=== PATIENT | male | born 2000 | race Caucasian/White ===

== ENCOUNTER 2022-05-15 09:38 | Emergency (ER) | payer OTHER, SELFPAY ==
--- NOTE | ~2022-05-15 | XR_ITS ---
EXAMINATION: XR hand RT min 3V DATE: 05/15/2022 11:16 INDICATION: Right hand injury. TECHNIQUE: 4 views of right hand were obtained. COMPARISON: None. FINDINGS: Bone alignment is normal. The distal hamate is indistinct. A linear lucency in base of thir d metacarpal may be a fracture. Other joint spaces are normal. Splint material is noted. IMPRESSION: 1. Indistinct distal hamate suspicious for an intra-articular fracture at the fourth and fifth carpom etacarpal joints. Possible fracture of base of third metacarpal. Consider CT. Reviewed, dictated and finalized at location A. IMPRESSION: 1. Indistinct distal hamate suspicious for an intra-articular fracture at the f ourth and fifth carpometacarpal joints. Possible fracture of base of third meta carpal. Consider CT.
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
[2022-05-15 09:45] VITALS: BP 126/78; PULSE 88; RESP 16; TEMP 36.7; O2SAT 100
[2022-05-15] MEDS: ACETAMINOPHEN 500 MG TABLET 1000 MG PO (10:08)
== END 2022-05-15 11:53 | disposition home or self-care (01) ==
PROVIDERS: Emergency Provider Nurse Practitioner
DX: S62.91XA Unspecified fracture of right hand, initial encounter for closed fracture (principal); W22.09XA Striking against other stationary object, initial encounter; F17.200 Nicotine dependence, unspecified, uncomplicated
CPT/HCPCS: 29125; 73130; 99214; A4565; A9270; G0463

== ENCOUNTER 2022-06-02 14:09 | Outpatient (CLI) | payer OTHER, SELFPAY ==
--- NOTE | ~2022-06-02 | CT_ITS ---
EXAMINATION: CT UE RT wo con DATE: 06/02/2022 14:51 INDICATION: Left wrist fracture TECHNIQUE: High resolution computed tomography (CT) of the right hand and wrist was performed without intravenous contrast. Additional sagittal and coronal reconstructions were performed. Automated expo sure control and iterative reconstruction technique were employed. The dose-length product was 453.53 mGy-cm. COMPARISON: Right hand radiographs dated 05/15/2022 FINDINGS: Mildly comminuted intra-articular fracture involving the palmar base of the fourth metacarpal. The pa lmar sided fragments remain in relatively normal alignment relative to the hamate and the adjacent ba se of the third metacarpal. There is dorsal dislocation and slight proximal migration of the main thi rd metacarpal fragment at the third carpometacarpal joint. There is also a mildly comminuted fracture extending across the dorsal margin of the hamate involving the articular surfaces at both the fourth and fifth metacarpophalangeal joints. The dorsal fragments are dorsally displaced with similar degre e. There is associated dorsal subluxation and mild proximal migration of the fifth metacarpal, the pa lmar base of which is positioned abuts the hamate fracture donor site. No other fractures identified. 2 mm ulnar minus variance. Alignment and joint spaces of the right wrist and remainder the right akers d are normal. Soft tissues are unremarkable. IMPRESSION: 1. Intra-articular fractures involving the palmar base of the fourth metacarpal and dorsal margin of the hamate with dorsal dislocation/subluxation at both the fourth and fifth carpal metacarpal joints. Reviewed, dictated and finalized at location A. IMPRESSION: 1. Intra-articular fractures involving the palmar base of the fourth metacarpal and dorsal margin of the hamate with dorsal dislocation/subluxation at both th e fourth and fifth carpal metacarpal joints.
== END 2022-06-02 14:10 | disposition home or self-care (01) ==
PROVIDERS: Visit Provider Plastic Surgery
DX: S62.141A Displaced fracture of body of hamate [unciform] bone, right wrist, initial encounter for closed fracture (principal); S62.314A Displaced fracture of base of fourth metacarpal bone, right hand, initial encounter for closed fracture
CPT/HCPCS: 73200

== ENCOUNTER 2022-06-08 00:08 | Day surgery (SDC) | payer OTHER, SELFPAY ==
[2022-06-07 11:41] VITALS: BMI 16.9
--- NOTE | 2022-06-07 11:48 | PC.NURSE ---
Report to the Outpatient Waiting Room, entrance under the green pavilion located off [facility], at time 0700 on date 06/08/22. OR Time: 0900. - You and your visitor will be asked to self-screen and do not enter if you have any COVID symptoms. - Only one visitor and NO children visitors are allowed at this time. - The patient visitor is requested to leave or wait in car when not with patient due to restrictions. - A mask is required within the hospital. Patients may have clear liquids (water, carbonated beverages, clear teas, apple juice) until 3 hours prior to surgery with a maximum of 20 ounces. - No food from midnight until time of surgery Take the following medications with a SIP of water the morning of surgery: PAIN PILL (IF NEEDED) Medications to discontinue per physician: N/A Date to take last dose: N/A Please no make-up, nail azeri, hairspray, perfume, deodorant, or body powder the day of surgery. No jewelry (including any body piercings) or valuables the day of surgery, leave them at home. Please take a shower or bath the night before, or the morning of, surgery with an antibacterial soap. Wear comfortable, loose fitting clothing. - Jewelry must be removed prior to entering the operating room. Rings and piercings that are not removed may be cut off. - The hospital will not accept responsibility for valuables. - Please leave all valuables, including medications, at home the day of surgery. If you are going home after surgery, a licensed solo truck driver must drive you home. - NO public transportation without another adult. - We recommend that an adult stay with you for 24 hours following discharge. - We also recommend that you do not drive, make important decision, drink alcoholic beverages, or take any drugs that were not prescribed by your health care provider for at least 24 hours after your discharge time. Follow any additional instructions given to you from your surgeon. If you or anyone in your household have experienced Covid symptoms in the past week, please notify your surgeon or the nurse liaison at the phone number below for possible testing. Telephone instructions given to PT - ROYER MOYA and asked if any additional questions and then verbalized understanding. Patient advised to call surgeon office or pre surgery nurse liaison [phone] if any additional questions.
[2022-06-08] VITALS (8 sets, daily range): BP systolic 115–138; BP diastolic 52–96; PULSE 69–81; RESP 13–20; TEMP 36.6; O2SAT 98–100
--- NOTE | ~2022-06-08 | XR_ITS ---
EXAMINATION: XR surgery orthopedic DATE: 06/08/2022 12:13 INDICATION: Right hamate fracture. TECHNIQUE: 7 intraoperative fluoroscopic views of right wrist were obtained. I was not present. Fluor oscopy exposure time was 298 seconds. COMPARISON: CT 06/02/2022 FINDINGS: There is a pin in fifth metacarpal and hamate. There is a pin in the bases of the third-fif th metacarpals. There is a pin in the bases of the second-fifth metacarpals. IMPRESSION: 1. Pins involving the fifth carpometacarpal joint and bases of the metacarpals. Reviewed, dictated and finalized at location A.
--- NOTE | 2022-06-08 07:13 | WPDHPUPDATE1 ---
History and Physical Update Update Date/Time: 06/08/22 07:13 History and Physical has been reviewed, including an updated exam of the patient. There are NO changes in the patient's condition. Risks, benefits, and alternatives have been discussed and questions answered. Patient agrees to proceed with procedure.
--- NOTE | 2022-06-08 08:18 | WPDANESEPPF ---
Anes - Initial Pre Proc Eval Procedure: Operation Date: 06/08/22 09:00 Proposed Procedures p Open Reduction Internal Fixation Right Third, Fourth, and Fifth Metacarpal Base Fractures - Catrachito Parish MD Date/Time: 06/08/22 08:18 Surgeon: Catrachito Parish MD Pre Op Diagnosis: rt 3rd,4th, 5th metacarpal base fx Patient Data Age: 22 Gender: M Height: 1.79 m Weight: 54.43 kg Allergies Allergy/AdvReac Type Severity Reaction Status Date / Time No Known Allergies Allergy Verified 06/08/22 08:10 Home Medications Medication Instructions Recorded Confirmed Type hydrocodone 5 mg-acetaminophen 325 1 tablet PO Q6H PRN pain #14 tabs 05/15/22 06/08/22 Rx mg tablet Patient hx anesthesia problems: none Family hx anesthesia problems: none Results Review: All pre-operative results and documents have been reviewed as part of the pre-operative evaluation. [facility] Past Medical History Medical History Patient denies medical problems Surgical History Surgical History No history of previous surgery Social History Social History Smoking status: Never smoker Alcohol intake: current Drinks per week: 3 Substance use: current Substance use type: marijuana Living arrangements: with friend(s) Additional living arrangements comments: GIRLFRIEND Gender identity (if verbalized by the patient): Male Spiritual care concerns: No Anes - Eval Final PreProcedure Day of Procedure 06/08/22 08:18 Patient weight: normal Heart: regular rate and rhythm Lungs: clear to auscultation Airway: Mallampati scale class II Neurological: alert and oriented Last oral intake: >/= 8 hours ASA classification: II Emergent: no Anesthetic plan: proceed Anesthesia type and monitoring: general LMA and standard monitoring Results Review: All pre-operative results and documents have been reviewed as part of the pre-operative evaluation. Informed Consent: The patient's anesthetic plan and its attendant risks and benefits were discussed with the patient/family/POA. Questions were solicited and answers provided to the satisfaction of the patient/family/POA.
[2022-06-08] MEDS: LACTATED RINGERS 1,000 ML 30 ML IV CONT ×3 (08:20→12:57)
[2022-06-08] MEDS: LIDO 1%/EPINEPHRINE 1:100,000 50 ML VIAL 20 ML INFILTRATE (09:00)
[2022-06-08] MEDS: ceFAZolin 2 GM/D5W 50 ML 2 GM/50 ML BAG IVPB (09:00)
[2022-06-08] MEDS: BUPIVACAINE HCL 0.5% PF 30 ML VIAL INFILTRATE (11:32)
--- NOTE | 2022-06-08 12:18 | W.PM.PROC2 ---
Procedure Note - Detailed Date of Procedure 06/08/22 Pre-op Diagnosis rt 3rd,4th, 5th metacarpal base fx Post-op Diagnosis Same Procedure Performed Open reduction with internal fixation of fracture of the right hamate and fracture subluxation of the right 4th and 5th metacarpals. Surgeon Catrachito Parish MD Preventive Maintenance Coordinator Mar[facility] Anesthesia General Description of Procedure The dorsum of the right hand was marked the patient's consent the holding area. He was then taken to the operating room where he was placed supine on the operating table. He was given general endotracheal anesthesia and the right upper extremity was prepped and draped in usual fashion. The area was marked for incision to spare a large tattoo. This area was infiltrated with 1% lidocaine with epinephrine 10 milliliter. The marking was made to outline the course of the incision sparing a tattoo. An Esmarch tourniquet was used to exsanguinate the extremity. The tourniquet was inflated to 250 mmHg. A curving incision over the wrist and proximal metacarpals was made with a 15 blade. Blunt dissection through the subcutaneous tissue preserved larger veins and cutaneous nerves. A vessel loop was placed on the largest of these. A longitudinal incision was made across the carpal metacarpal joint extending distally between the 4th and 5th metacarpals. A sub periosteal dissection was carried out to visualize the fractures and the joints involved. The 3rd metacarpal was not fractured and not displaced and was not exposed. Comminuted fractures at the base of the 4th metacarpal and hamate and capitate were identified. The 5th metacarpal was somewhat subluxed into the carpometacarpal joint. Little damage seemed to have been done to the 5th metacarpal base or the hamate articulation. Significant comminution was noted at the ulnar base of the 4th metacarpal and the dorsum of the hamate at that articulation. There did not appear to be significant fragments amenable to screw fixation at those sites. Multiple images were made with the C-arm. A time-out was taken to review the CT scan again. The tourniquet had been up for 50 minutes and was released for 7 minutes at that point. After reinflation of the tourniquet I resorted to distraction of the 4th metacarpal and placement of a transverse 0.045 in C-wire through the proximal metaphysis of the 5th 4th and 3rd metacarpals. Additional stabilization was done by placing a diagonal 0.045 in C-wire through the proximal 5th metacarpal into the hamate securing also a very thin osteocartilaginous plate of the hamate joint surface. Fragments of the distal dorsal hamate were rotated into normal position. No fixation was possible on those other than over-sewing soft tissue with 3-0 Vicryl. To further secure the the stabilization of the subluxed metacarpals, a 2nd 0.045 inch C-wire was driven transversely across the 5th 4th 3rd and into the 2nd metacarpal at the level of the metaphyses paralleling the existing wire. With this fixation the wrist freely moved in flexion and extension and [id number]. There was no impingement on extensor tendons to the 4th or 5th digits. The pins were all cut pigtail and tucked under the skin sites that nerves or tendons were not impinged. Soft tissue was repaired over the carpometacarpal joint with 3-0 Vicryl. Intradermal 3-0 Vicryl was placed in the skin wound. 10 milliliter of 0.5% Marcaine plain were infiltrated in the wound area. Skin closure was completed with a running 5 0 nylon. The tourniquet was released. A soft bulky bandage was applied without splint. The patient was discharged from the operating room stable condition. He has a prescription for oxycodone 5/325 7 and ibuprofen 600 mg p.o. q.6 hours as needed 20. Estimated Blood Loss 3 Tourniquet Time 118 Drains No Packing No Pathology None sent Complications No immediate complications Condition Stable Disposition PACU
[2022-06-08] MEDS: fentaNYL CITRATE INJ (*CRX) 100 MCG/2 ML VIAL 25 MCG IV PUSH ×4 (12:22→12:41)
[2022-06-08] MEDS: oxyCODONE HCL (*CRX) 5 MG TAB IR PO (13:34)
== END 2022-06-08 13:50 | disposition home or self-care (01) ==
PROVIDERS: Visit Provider Plastic Surgery
PROC: (CPT 26615; principal; 2022-06-08 09:00)
DX: S62.314A Displaced fracture of base of fourth metacarpal bone, right hand, initial encounter for closed fracture (principal); S62.396A Other fracture of fifth metacarpal bone, right hand, initial encounter for closed fracture; W22.8XXA Striking against or struck by other objects, initial encounter; F12.90 Cannabis use, unspecified, uncomplicated
CPT/HCPCS: 26615 ×2; 99199; A9270; C1713; J0690; J1100; J1170; J1630; J2250; J2405; J2704; J3010; J7120

== ENCOUNTER 2022-10-06 17:20 | Outpatient (CLI) | payer OTHER, SELFPAY ==
--- NOTE | ~2022-10-06 | XR_ITS ---
EXAMINATION: XR wrist RT min 3V DATE: 10/06/2022 17:38 INDICATION: Right hamate fracture. TECHNIQUE: 4 views of right wrist were obtained. COMPARISON: Right hand radiographs 05/15/2022, CT 06/02/2022 FINDINGS: Bone alignment is normal. There is a fracture deformity of distal hamate. There is a fractu re deformity of base of fourth metacarpal. Other joint spaces are normal. There is a pin in hamate an d fifth metatarsal. There is a pin in the bases of the third-fifth metacarpals. There is a pin in the bases of the second-fifth metacarpals. IMPRESSION: 1. Fracture deformities of distal hamate and proximal fourth metacarpal with pin fixation of multiple bones. Reviewed, dictated and finalized at location A. RINTENDENT TRANSMISSION IMPRESSION: 1. Fracture deformities of distal hamate and proximal fourth metacarpal with pi n fixation of multiple bones.
== END 2022-10-06 17:21 | disposition home or self-care (01) ==
LOC: ANHIMG 17:21
PROVIDERS: Visit Provider Plastic Surgery
DX: S62.141D Displaced fracture of body of hamate [unciform] bone, right wrist, subsequent encounter for fracture with routine healing (principal); S62.314D Displaced fracture of base of fourth metacarpal bone, right hand, subsequent encounter for fracture with routine healing; S62.316D Displaced fracture of base of fifth metacarpal bone, right hand, subsequent encounter for fracture with routine healing
CPT/HCPCS: 73110

== ENCOUNTER 2022-10-18 01:18 | Day surgery (SDC) | payer OTHER, SELFPAY ==
--- NOTE | ~2022-10-18 | XR_ITS ---
EXAMINATION: XR surgery orthopedic DATE: 10/18/2022 11:04 INDICATION: Removal of fixation wires at the right wrist TECHNIQUE: 3 fluoroscopic images of the right hand and wrist were obtained during procedure performed by Dr. Parish. Radiologist was not present for the imaging or procedure. The amount of fluoroscopy ti me used during this procedure was 0.4 minutes. COMPARISON: 06/08/2022 FINDINGS: There are residual lucent tracks along the course of the previously placed fixation wires which exten d across the base of the second-fourth metacarpals and into the hamate. No retained metallic foreign bodies. Alignment appears near-anatomic. No fractures are evident on prior CT are not clearly visuali zed likely due to interval healing and fluoroscopic technique. No pneumothorax identified. IMPRESSION: 1. No retained foreign bodies post removal of fixation wires at the the hamate and bases of the secon d-fifth metacarpals. See procedure note for further detail. Reviewed, dictated and finalized at location A. MATE IMPRESSION: 1. No retained foreign bodies post removal of fixation wires at the the hamate and bases of the second-fifth metacarpals. See procedure note for further juanita nunez
--- NOTE | 2022-10-18 07:02 | WPDHPUPDATE1 ---
History and Physical Update Update Date/Time: 10/18/22 07:02 History and Physical has been reviewed, including an updated exam of the patient. There are NO changes in the patient's condition. Risks, benefits, and alternatives have been discussed and questions answered. Patient agrees to proceed with procedure.
[2022-10-18 08:52] VITALS: BP 126/73; PULSE 69; RESP 20; TEMP 36.6; O2SAT 100
[2022-10-18] MEDS: LACTATED RINGERS 1,000 ML 30 ML IV CONT (09:20)
--- NOTE | 2022-10-18 09:28 | WPDANESEPPF ---
Anes - Initial Pre Proc Eval Procedure: Operation Date: 10/18/22 07:30 Proposed Procedures p Removal Fixation C-Wires Right Wrist - Catrachito Parish MD Date/Time: 10/18/22 09:28 Surgeon: Catrachito Parish MD Pre Op Diagnosis: hx of ORIF right hammate Patient Data Age: 22 Gender: M Height: 1.78 m Weight: 56 kg Last Vital Signs Temp 36.6 C 10/18/22 08:52 Pulse 69 10/18/22 08:52 Resp 20 10/18/22 08:52 BP 126/73 10/18/22 08:52 Pulse Ox 100 10/18/22 08:52 O2 Del Method Room Air 10/18/22 08:52 Allergies Allergy/AdvReac Type Severity Reaction Status Date / Time No Known Allergies Allergy Verified 06/08/22 08:10 Home Medications Medication Instructions Recorded Confirmed Type hydrocodone 5 mg-acetaminophen 325 1 tablet PO Q6H PRN pain #14 tabs 05/15/22 10/18/22 Rx mg tablet ibuprofen 600 mg tablet 600 mg PO Q6H PRN pain #20 tabs 06/08/22 10/18/22 Rx oxycodone-acetaminophen 5 mg-325 1 tablet PO Q6H PRN pain #7 tabs 06/08/22 10/18/22 Rx mg tablet Patient hx anesthesia problems: none Family hx anesthesia problems: none Results Review: All pre-operative results and documents have been reviewed as part of the pre-operative evaluation. [facility] Past Medical History Medical History Patient denies medical problems Surgical History Surgical History (Updated 10/18/22 @ 09:28 by Real Santiago MD) H/O wrist surgery Social History Social History Smoking status: Never smoker Alcohol intake: current Drinks per week: 3 Substance use: current Substance use type: marijuana Additional living arrangements comments: GIRLFRIEND Gender identity (if verbalized by the patient): Male Spiritual care concerns: No Anes - Eval Final PreProcedure Day of Procedure 10/18/22 09:28 Patient weight: thin Heart: regular rate and rhythm Lungs: clear to auscultation Airway: Mallampati scale class II Neurological: alert and oriented Last oral intake: >/= 8 hours ASA classification: II Emergent: no Anesthetic plan: proceed Anesthesia type and monitoring: general GIVS and standard monitoring Results Review: All pre-operative results and documents have been reviewed as part of the pre-operative evaluation. Informed Consent: The patient's anesthetic plan and its attendant risks and benefits were discussed with the patient/family/POA. Questions were solicited and answers provided to the satisfaction of the patient/family/POA.
[2022-10-18 10:56] VITALS: BP 106/68; PULSE 72; RESP 18; O2SAT 100
--- NOTE | 2022-10-18 11:12 | W.PM.PROC2 ---
Procedure Note - Detailed Date of Procedure 10/18/22 Pre-op Diagnosis hx of ORIF right hammate Post-op Diagnosis Same Procedure Performed Planed removal of fixation hardware. Surgeon Catrachito Parish MD Anesthesia MAC Findings 3 appropriately positioned C wires Description of Procedure The patient's hand was marked in preop over the palpable pin ends. There was no infection or drainage at this time patient has good range of motion. He had been lost to follow-up for while. He was taken to the operating room where he was placed supine operating table. He was given some IV sedation. The extremity was prepped and draped in usual fashion. The locations of the pins were infiltrated with 2% lidocaine with epinephrine. No tourniquet was utilized. The C-arm confirmed the site of pin ends. Two small incisions were made allowing visualization the pins. Two pins were removed from the more volar proximal incision without difficulty. The single pin was removed from dorsal distal incision. There was a little bleeding that site. Pressure was held on this. Each site was closed with interrupted 5 0 nylon sutures 3 stitches each. A small compressive bandage was applied. He is discharge instructions wound care and follow-up. He has a prescription sent to his pharmacy for hydrocodone 5/325 4. Estimated Blood Loss 2 Tourniquet Time 0 Drains No Packing No Pathology None sent Complications No immediate complications Condition Stable Disposition Same day
[2022-10-18] MEDS: oxyCODONE HCL (*CRX) 5 MG TAB IR PO (11:25)
[2022-10-18 11:26] VITALS: BP 117/93; PULSE 87; RESP 18; O2SAT 100
== END 2022-10-18 12:19 | disposition home or self-care (01) ==
PROVIDERS: Visit Provider Plastic Surgery
PROC: (CPT 20694; principal; 2022-10-18 07:30)
DX: Z47.2 Encounter for removal of internal fixation device (principal); S62.141D Displaced fracture of body of hamate [unciform] bone, right wrist, subsequent encounter for fracture with routine healing; W22.09XD Striking against other stationary object, subsequent encounter; F12.90 Cannabis use, unspecified, uncomplicated
CPT/HCPCS: 20680 ×2; 99199; A9270; J2250; J2704; J3010; J7120

== ENCOUNTER 2023-04-21 10:33 | Emergency (ER) | payer OTHER, SELFPAY ==
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
[2023-04-21 10:34] VITALS: BP 117/75; PULSE 72; RESP 20; TEMP 36.9; O2SAT 98
[2023-04-21] MEDS: HYDROcodone/acetaminophen (*CRX) 5-325 MG TABLET 1 TAB PO ×2 (11:08→12:50)
--- NOTE | 2023-04-21 11:31 | ECG_ITS ---
Measurements Intervals [place] Rate: 58 P: 52 CA: 168 QRS: 52 QRSD: 90 T: 41 QT: 361 QTc: 357 Interpretive Statements SINUS BRADYCARDIA WITH SINUS ARRHYTHMIA BORDERLINE ECG NO PREVIOUS ECG AVAILABLE FOR COMPARISON Electronically Signed On 04-21-2023 18:22:34 CDT by Landry Chase D.O.
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
[2023-04-21] MEDS: KETOROLAC 30 MG/ML VIAL (*BKC) IM (12:50)
[2023-04-21 13:43] VITALS: BP 130/84; PULSE 78; RESP 16; O2SAT 99
== END 2023-04-21 13:43 | disposition home or self-care (01) ==
PROVIDERS: Emergency Provider Physician Assistant; PCP Family Medicine
DX: R07.89 Other chest pain (principal); W50.0XXA Accidental hit or strike by another person, initial encounter; Y93.75 Activity, martial arts
CPT/HCPCS: 71250; 93005; 96372; 99284; A9270; J1885

== ENCOUNTER 2023-10-23 08:54 | Emergency (ER) | payer OTHER, SELFPAY ==
[2023-10-23 08:57] VITALS: BP 142/75; PULSE 90; RESP 16; TEMP 36.3; O2SAT 100
[2023-10-23 09:58] LABS: Appearance Urine Clear (Clear); Bacteria Urine None Seen /hpf; Bilirubin Urine Negative (Negative); Blood Urine Negative (Negative); Color Urine Yellow (Yellow); Glucose Urine UA Negative (Negative); Ketones Urine Trace mg/dL (Negative); Leukocyte Esterase Ur Negative LEU/UL (Negative); Nitrate Urine Negative (Negative); Non Pathogenic Casts 0-2; Protein Urine 1+ mg/dL (Negative); RBC Urine 0-2 /hpf (0-2); Squamous Epithelial Cell Urine None seen /hpf (Few); WBC Urine 0-5 /hpf; pH Urine 5.5 (5.0-9.0)
[2023-10-23 09:59] LABS: Add Urine Microscopic? YES
--- NOTE | 2023-10-23 10:07 | ED.GENADULT ---
HPI - General Adult General Chief complaint: Urogenital-Male Stated complaint: testicular lump, can't pee, pain Time Seen by Provider: 10/23/23 09:46 Source: patient Mode of arrival: ambulatory Limitations: no limitations History of Present Illness HPI narrative: This is a 23-year-old male who presents to the ED with chief complaint of difficulty with urination. Reports that sometimes it will take 2-3 minutes before he can start urine stream. Patient also reports a lump to the left groin area has been present for 2-3 years and seems to be slowly enlarging. Denies any pain. Does report some dysuria but denies hematuria, penile discharge penile pain lesions or testicular pain or lesions. Denies any specific concern for STD Related Data Allergies Allergy/AdvReac Type Severity Reaction Status Date / Time No Known Allergies Allergy Verified 10/23/23 08:55 Review of Systems Review of Systems: All systems as dictated in HPI REPLACED BY [facility] Past Medical History Medical History (Updated 10/23/23 @ 11:28 by Jorge Luis Ospina PA-C) Patient denies medical problems Surgical History Surgical History (Updated 10/18/22 @ 09:28 by Real Santiago MD) H/O wrist surgery Social History Social History Smoking status: Never smoker Alcohol intake: current Drinks per week: 3 Substance use: current Substance use type: marijuana Living arrangements: with friend(s) Additional living arrangements comments: GIRLFRIEND Gender identity (if verbalized by the patient): Male Spiritual care concerns: No Exam Narrative: GENERAL: Well-appearing, well-nourished, and in no acute distress. HEAD: Normocephalic, atraumatic. EYES: PERRLA and EOMI. ENT: Nares clear, no rhinorrhea or epistaxis. Mucous membranes moist. Oropharynx without tonsillar hypertrophy exudate or other lesions. NECK: Supple. No adenopathy or masses. CHEST: No respiratory distress. Clear to auscultation. No wheezes rales or rhonchi HEART: Regular rate and rhythm. No murmur heard. Normal peripheral pulses. ABDOMEN: Soft, nontender, nondistended, normal active bowel sounds. MSK: Normal range of motion. No edema. SKIN: There is a small 2 cm area of firm swelling to the left groin/medial thigh. No overlying skin changes. No tenderness or warmth. Warm, dry, no rash. NEURO: Alert and oriented x3. No focal deficits. PSYCH: Normal mood and affect. : Normal penile shaft and testicular exam. Course Vital Signs Vital signs: Vital Signs Temperature 97.4 F L 10/23/23 08:57 Pulse Rate 90 10/23/23 08:57 Respiratory Rate 16 10/23/23 08:57 Blood Pressure 142/75 H 10/23/23 08:57 Pulse Oximetry 100 10/23/23 08:57 Oxygen Delivery Room Air 10/23/23 08:57 Temperature 97.8 F 10/23/23 10:57 Pulse Rate 86 10/23/23 12:12 Respiratory Rate 10/23/23 12:12 Blood Pressure 140/86 10/23/23 12:12 Pulse Oximetry 98 10/23/23 12:12 Oxygen Delivery Room Air 10/23/23 08:57 Medical Decision Making MDM Narrative Medical decision making narrative: This is a 23 year male who presents to the ED with chief complaint of a left groin lump and some difficulty with urination. Vitals are normal. exam relatively unremarkable. I do palpate a likely lipoma of the left thigh. No overlying skin changes. No tenderness to suggest infectious process. Urinalysis does not show any evidence of infection. STD test are negative. He was given urology referral for this difficulty with urination. Pt will be discharged in stable condition. Return precautions given and supportive measures discussed. Pt is understanding and agreeable with plan for discharge and follow-up with PCP/urology Vital Signs Vital Signs: Vital Signs Temperature 97.4 F L 10/23/23 08:57 Pulse Rate 90 10/23/23 08:57 Respiratory Rate 10/23/23 08:57 Blood Pressure 142/75 H 10/23/23 08:57 Pulse Oximetry
[2023-10-23 10:57] VITALS: BP 118/75; PULSE 77; RESP 18; TEMP 36.6; O2SAT 99
[2023-10-23 11:38] LABS: Trichomonas Vag PCR NOT DETECTED (NOT DETECTE)
[2023-10-23 12:03] LABS: Chlamydia trachomatis NOT DETECTED (NOT DETECTE); Neisseria gonorrhoeae PCR NOT DETECTED (NOT DETECTE)
[2023-10-23 12:12] VITALS: BP 140/86; PULSE 86; RESP 16; O2SAT 98
== END 2023-10-23 12:12 | disposition home or self-care (01) ==
PROVIDERS: Emergency Medicine; Emergency Provider Physician Assistant
DX: R39.198 Other difficulties with micturition (principal)
CPT/HCPCS: 81001; 87491; 87591; 87661; 99283

== ENCOUNTER 2024-06-03 22:54 | Inpatient (IN) | payer OTHER, SELFPAY ==
--- NOTE | ~2024-06-03 | XR_ITS ---
Portable chest x-ray Comparison: 06/04/2024 Clinical History: Respiratory failure Findings: Endotracheal tube, NG tube, and right-sided PICC line are in satisfactory positions. Proba ble focal retrocardiac consolidation present. Suspected small left apical pneumothorax. Right lung cl ear. Suspected pneumomediastinum. Cardiomediastinal silhouette is otherwise stable. Osseous structure s intact. There is extensive subcutaneous soft tissue emphysema. Impression: Suspected small left apical pneumothorax. Retrocardiac consolidation could reflect atelectasis or pneumonia. Extensive subcutaneous emphysema, and suspected pneumomediastinum. Support tubes, as above. Reviewed, dictated and finalized at location . Impression: Suspected small left apical pneumothorax. Retrocardiac consolidation could reflect atelectasis or pneumonia. Extensive subcutaneous emphysema, and suspected pneumomediastinum. Support tubes, as above.
--- NOTE | ~2024-06-03 | XR_ITS ---
EXAMINATION: XR abdomen gastric tube insert DATE: 06/03/2024 23:26 INDICATION: Orogastric tube placement. TECHNIQUE: A supine view of the abdomen was obtained. COMPARISON: None. FINDINGS: There are no dilated loops of bowel. The lower abdomen is excluded. The nasogastric tube ti p is in the stomach. IMPRESSION: 1. Nasogastric tube tip in the stomach. Reviewed, dictated and finalized at location [facility].
--- NOTE | ~2024-06-03 | CT_ITS ---
EXAMINATION: CT brain wo con DATE: 06/05/2024 11:14 INDICATION: Nonreactive pupils TECHNIQUE: Computed tomography (CT) of the head was performed without intravenous contrast. Sagittal and coronal reconstructions were performed. The mA was adjusted according to patient size. Iterative reconstruction technique was employed. The dose-length product was 681.00 mGy-cm. COMPARISON: head CT dated 06/04/2024 FINDINGS: No acute intracranial hemorrhage, acute infarction or abnormal extra axial fluid collection. Ventricl es are normal and symmetric. No mass/mass effect. The orbits, paranasal sinuses and mastoid air cells are normal. There is soft tissue gas in the deep spaces of the neck and in the subcutaneous tissues at the posterior upper neck.. IMPRESSION: 1. Normal brain. No acute intracranial process. 2. Nonspecific gas in the deep spaces of the neck and in the posterior cervical subcutaneous tissues Reviewed, dictated and finalized at location [facility].
--- NOTE | ~2024-06-03 | XR_ITS ---
EXAMINATION: XR chest PICC line DATE: 06/04/2024 09:39 INDICATION: PICC line placement TECHNIQUE: frontal view of the chest was obtained. COMPARISON: Chest radiograph dated 06/04/2024 at 5:14 AM FINDINGS: Endotracheal tube tip 4.4 cm above the brayden. Nasogastric tube extends into the stomach with proxim al side-port in the proximal body of the stomach and the distal tip collimated off the study. Right u pper extremity peripherally inserted central venous catheter (PICC) tip at the caudal superior vena cava. There are patchy airspace opacities throughout the left lung. Additional mild opacities in the right perihilar and infrahilar regions. No pleural effusion or pneumothorax. The cardiomediastinal silhouet te is normal. There is soft tissue gas at the visualized right neck and supraclavicular region. IMPRESSION: 1. Lines and tubes in expected position. 2. Extensive airspace opacities throughout the left hemithorax and in the right perihilar in the infr ahilar regions suspicious for pneumonia an/or pneumonia. 3. Soft tissue gas at the right neck and supraclavicular region which is of indeterminate etiology. C orrelate with clinical history and for any surgery or trauma in this region. Reviewed, dictated and finalized at location [facility]. IMPRESSION: 1. Lines and tubes in expected position. 2. Extensive airspace opacities throughout the left hemithorax and in the right perihilar in the infrahilar regions suspicious for pneumonia an/or pneumonia. 3. Soft tissue gas at the right neck and supraclavicular region which is of ind eterminate etiology. Correlate with clinical history and for any surgery or tra narendra in this region.
--- NOTE | ~2024-06-03 | CT_ITS ---
EXAMINATION: CT abdomen pelvis w con DATE: 06/05/2024 11:13 INDICATION: Pneumoperitoneum post CPR TECHNIQUE: Computed tomography (CT) of the abdomen and pelvis was performed with 100 mL Omnipaque-350 intravenous contrast. Automated exposure control and iterative reconstruction technique were employe d. The dose-length product was 313.89 mGy-cm. COMPARISON: None FINDINGS: There is pneumomediastinum in the visualized lower thorax. There is minimal amount of extrapleural ga s peripheral to the left lung but also peripheral to a very small left pleural effusion. Branching pa ttern of increased lucency in the right lung suggesting interstitial gas. There is consolidation in t he dependent lower lobes, left greater than right with small amount of additional patchy airspace dis ease at the dependent lingula consistent with pneumonia. Nasogastric tube tip in the body the stomach . There is anterior chest wall gas. There is gas along the deep margin of the abdominal wall. There are subtle internal septations extending throughout the gas which would be consistent with extraperitone al emphysema. No other evident free intraperitoneal gas. Minimal perihepatic ascites at the gallbladd er fossa and along the caudal tip of the right hepatic lobe. Gallbladder appears otherwise normal wit h no dilation or pericholecystic inflammatory stranding to suggest acute cholecystitis. Liver, spleen , pancreas, bilateral adrenal glands and kidneys are normal. Molina catheter within the decompressed b ladder. There is a likely temperature probe in the rectum. Bowels are unremarkable with no obstructio n. No pathologically enlarged abdominal or pelvic lymphadenopathy. Bones are unremarkable. IMPRESSION: 1. Extraperitoneal gas along the anterior abdominal wall along with subcutaneous emphysema the anteri or chest wall, pneumomediastinum, minimal extrapleural gas at the periphery of the left lung base and small amount of gas tracking along the pulmonary interstitium of the right lung. 2. Consolidation in the dependent left and right lower lobes and to lesser degree in the lingula cons istent with aspiration and/or pneumonia. 3. Minimal perihepatic ascites. No intraperitoneal abscess or free intraperitoneal gas. Reviewed, dictated and finalized at location [facility]. IMPRESSION: 1. Extraperitoneal gas along the anterior abdominal wall along with subcutaneou s emphysema the anterior chest wall, pneumomediastinum, minimal extrapleural ga s at the periphery of the left lung base and small amount of gas tracking along the pulmonary interstitium of the right lung. 2. Consolidation in the dependent left and right lower lobes and to lesser degr ee in the lingula consistent with aspiration and/or pneumonia. 3. Minimal perihepatic ascites. No intraperitoneal abscess or free intraperiton eal gas.
--- NOTE | ~2024-06-03 | XR_ITS ---
Portable chest x-ray Comparison: 06/03/2024 Clinical History: Intubation Findings: Endotracheal tube and NG tube are in satisfactory positions. Extensive patchy left upper l obe pneumonia is again present. Small left pleural effusion noted. Right lung clear. Cardiomediastin al silhouette is stable. Bones and soft tissues are unremarkable. Impression: Extensive left upper lobe pneumonia, similar to prior exam. Small left pleural effusion. Support tubes, as above. Reviewed, dictated and finalized at location . Impression: Extensive left upper lobe pneumonia, similar to prior exam. Small left pleural effusion. Support tubes, as above.
--- NOTE | ~2024-06-03 | CT_ITS ---
CT Scan of the Neck and Chest without Contrast: Clinical Indication: Subcutaneous emphysema Technique: Contiguous sections were acquired throughout the neck and chest without intravenous contra st. Dose reduction technique was used on this scan by utilizing automated exposure control and iterat harley reconstruction technique. The dose-length product (DLP) was 482.44 mGy-cm. COMPARISON: 06/04/2024 Findings: Endotracheal tube and NG tube remain in place. There is extensive soft tissue emphysema in the neck bilaterally. No cervical lymphadenopathy or neck mass identified. Parotid and submandibular glands are unremarkable. There is no evidence of any significant mediastinal, hilar or axillary lymphadenopathy. There is exte nsive pneumomediastinum, new from prior exam. There is no evidence of pleural or pericardial effusion. Small left apical pneumothorax present. Patchy left upper lobe consolidation and present, compatible with pneumonia. There is additional consolidation involving the bilateral lower lobes, left worse sonya n right, suggestive of additional pneumonia bilaterally. Element of bibasilar atelectasis may also be present. There is extensive subcutaneous emphysema throughout the anterior chest wall region and in the suprac lavicular regions. There is pneumoperitoneum, likely related to dissection of air from the mediastinu m. Impression: Markedly extensive soft tissue/subcutaneous emphysema and the neck and chest wall/upper back. Extensive pneumomediastinum, as well as pneumoperitoneum, new from prior exam. Small left pneumothorax, new from prior exam. Multifocal consolidation in the left upper lobe, left lower lobe, right lower lobe, most compatible w ith multilobar pneumonia. Possible element of bibasilar atelectasis also present. Reviewed, dictated and finalized at location M. Impression: Markedly extensive soft tissue/subcutaneous emphysema and the neck and chest wa ll/upper back. Extensive pneumomediastinum, as well as pneumoperitoneum, new from prior exam. Small left pneumothorax, new from prior exam. Multifocal consolidation in the left upper lobe, left lower lobe, right lower l obe, most compatible with multilobar pneumonia. Possible element of bibasilar a telectasis also present.
--- NOTE | ~2024-06-03 | CT_ITS ---
Non-contrast Head CT History: Overdose Technique: Axial non-contrast imaging of the brain was performed. Dose reduction technique was used on this scan by utilizing automated exposure control and iterative reconstruction technique. The dose -length product (DLP) was 605.33 mGy-cm. Findings: There is no evidence of intracranial hemorrhage, mass lesion, or acute infarct. Brain par enchyma appears normal. The ventricles and subarachnoid spaces are normal in size. The calvarium ap pears normal. The visualized paranasal sinuses and mastoid air cells are clear. Impression: No significant abnormality seen. Reviewed, dictated and finalized at location . Impression: No significant abnormality seen.
--- NOTE | ~2024-06-03 | CT_ITS ---
CT Scan of the Chest without Contrast: Clinical Indication: Pneumonia Technique: Contiguous sections were acquired throughout the chest without intravenous contrast. Dose reduction technique was used on this scan by utilizing automated exposure control and iterative recon struction technique. The dose-length product (DLP) was 152.96 mGy-cm. COMPARISON: 04/21/2023 Findings: Endotracheal tube and NG tube are in place. There is no evidence of any significant mediastinal, hilar or axillary lymphadenopathy. The mediastin al soft tissues appear normal. There is no evidence of pleural or pericardial effusion. There is extensive, dense bilateral lower lobe consolidation, which could reflect atelectasis or pneu monia. There is additional extensive patchy consolidation throughout the left upper lobe, consistent with extensive left upper lobe pneumonia. There is minimal patchy airspace disease in the right upper lobe, which could indicate additional minimal pneumonia involvement. Images through the upper abdomen reveal no abnormalities. Impression: Extensive left upper lobe pneumonia. Follow-up to radiographic resolution is advised. Extensive dense bilateral lower lobe consolidation is more suggestive of bilateral lower lobe atelect asis, versus additional pneumonia. Probable minimal pneumonic involvement in the right upper lobe. Reviewed, dictated and finalized at [facility]. Impression: Extensive left upper lobe pneumonia. Follow-up to radiographic resolution is ad vised. Extensive dense bilateral lower lobe consolidation is more suggestive of bilate ral lower lobe atelectasis, versus additional pneumonia. Probable minimal pneumonic involvement in the right upper lobe.
--- NOTE | ~2024-06-03 | XR_ITS ---
EXAMINATION: XR chest 1V portable DATE: 06/03/2024 23:14 INDICATION: Overdose. Intubation. TECHNIQUE: A single frontal view of the chest was obtained. COMPARISON: Chest CT 04/21/2023 FINDINGS: There are airspace opacities in left mid and upper lung zones. No pleural effusion or pneum othorax. The heart size is normal. The endotracheal tube tip is 2.5 cm above the brayden. IMPRESSION: 1. Airspace opacities in left mid and upper lung zones, consistent with pneumonia. Reviewed, dictated and finalized at location A. IMPRESSION: 1. Airspace opacities in left mid and upper lung zones, consistent with pneumon ia.
--- NOTE | ~2024-06-03 | XR_ITS ---
EXAMINATION: XR chest-chest tube insert/pos DATE: 06/05/2024 09:33 INDICATION: Chest tube placement TECHNIQUE: frontal view of the chest was obtained. COMPARISON: Chest radiograph and CT dated 06/05/2024 FINDINGS: Interval placement of a left chest tube which extends from inferolateral to superomedial across the l eft hemithorax with distal tip along the superior mediastinum. Endotracheal tube tip 4.0 cm from the brayden. Nasogastric tube extends below the left hemidiaphragm with proximal side-port in the proxima l body of the stomach and the distal tip collimated off the study. Right upper extremity peripherally inserted central venous catheter (PICC) tip at the caudal superior vena cava. There are patchy airspace opacities throughout the left hemithorax and in the right infrahilar region consistent with pneumonia. There is extensive subcutaneous emphysema over the neck and chest along w ith pneumomediastinum. There is small amount of increased lucency overlying the left apex which could represent a small pneumothorax or subpleural chest wall gas. No pleural effusion or right-sided pneu mothorax. The cardiomediastinal silhouette is normal. There is a small amount of gas underlying the d iaphragm but which appears to remain within the infradiaphragmatic fat on the prior CT. IMPRESSION: 1. Left chest tube in expected position. Small amount of lucency overlying the left apex which could represent a small pneumothorax or more likely residual gas in the subpleural chest wall fat. 2. Patchy airspace opacities throughout the left lung and in the right infrahilar region consistent w ith pneumonia. 3. Small amount of gas underlying the diaphragm but would favor gas in the infradiaphragmatic fat as opposed to pneumoperitoneum based upon prior CT imaging. Reviewed, dictated and finalized at location [facility]. IMPRESSION: 1. Left chest tube in expected position. Small amount of lucency overlying the left apex which could represent a small pneumothorax or more likely residual ga s in the subpleural chest wall fat. 2. Patchy airspace opacities throughout the left lung and in the right infrahil ar region consistent with pneumonia. 3. Small amount of gas underlying the diaphragm but would favor gas in the infr adiaphragmatic fat as opposed to pneumoperitoneum based upon prior CT imaging.
[2024-06-03 23:00] VITALS: PULSE 91; O2SAT 100
[2024-06-03 23:04] VITALS: BP 158/92; PULSE 98; RESP 18; O2SAT 96
[2024-06-03 23:05] VITALS: PULSE 136; RESP 15
[2024-06-03] MEDS: PROPOFOL IV EMULSION 100 ML 1.84 MG IV CONT (23:05)
--- NOTE | 2024-06-03 23:07 | ECG_ITS ---
Test Date: 2024-06-03 23:17:18 Measurements Intervals [place] Rate: 60 P: 73 OK: 141 QRS: 69 QRSD: 86 T: 61 QT: 358 QTc: 360 Interpretive Statements SINUS RHYTHM WITH PACS ABNORMAL RHYTHM ECG WARNING: DATA QUALITY MAY AFFECT INTERPRETATION No previous ECG available for comparison Electronically Signed On 06-05-2024 12:59:27 CDT by Hiram Em M.D.
--- NOTE | 2024-06-03 23:12 | ED.CPR ---
HPI - CPR General Chief Complaint: Cardiac Arrest/CPR Stated Complaint: code blue History of Present Illness HPI narrative: Patient is a 24-year-old male who presents to the emergency department this evening in cardiac arrest. EMS states that they got called for an unresponsive patient by family, unknown down time. Upon arrival, patient was unresponsive, not breathing and did not have a pulse. He was administered 3 rounds of Narcan and CPR was initiated. [place] was inserted for ventilatory support. By the time patient arrived to the emergency department, CPR has been in progress for 20 minutes. No epinephrine was administered as EMS did not have an IV. EMS informed us that family members told them that the patient has an extensive history of drug use and believes that he overdosed on fentanyl today. Related Data Allergies Allergy/AdvReac Type Severity Reaction Status Date / Time No Known Allergies Allergy Verified 10/23/23 08:55 Review of Systems Review of Systems: Unable to obtain a full ROS secondary to patient's current status. [facility] Past Medical History Medical History Patient denies medical problems Surgical History Surgical History H/O wrist surgery Social History Social History Smoking status: Never smoker Alcohol intake: current Drinks per week: 3 Substance use: current Substance use type: marijuana Living arrangements: with friend(s) Additional living arrangements comments: GIRLFRIEND Gender identity (if verbalized by the patient): Male Spiritual care concerns: No Exam Narrative: General: Unresponsive, CPR in progress. HEENT: Pupils dilated, equal and round reactive to light, oropharynx filled with bloody secretions and vomit. Neck: Trachea midline, no JVD, no lymphadenopathy. Cardiovascular: CPR in progress. Respiratory: Coarse breath sounds bilaterally. Abdomen: Soft, nontender, nondistended, no rebound, no guarding, no peritoneal signs. Musculoskeletal: No joint swelling or deformity, normal muscle tone. Skin: No rashes or petechia, no signs of infection. Neurological: And was positive, CPR in progress. Course Vital Signs Vital signs: Vital Signs Pulse Rate 91 06/03/24 23:00 Pulse Oximetry 100 06/03/24 23:00 Oxygen Delivery Mechanical Ventilation 06/03/24 23:00 Fraction of Inspired Oxygen 100 06/03/24 23:00 Temperature 97.0 F L 06/03/24 23:38 Pulse Rate 112 H 06/04/24 03:03 Respiratory Rate 34 H 06/04/24 03:03 Blood Pressure 122/76 06/04/24 03:00 Pulse Oximetry 95 06/04/24 03:01 Oxygen Delivery Mechanical Ventilation 06/04/24 02:25 Fraction of Inspired Oxygen 80 06/04/24 02:25 Procedures Intubation Intubation #1: Intubation Date: 06/04/24 Intubation Time: 03:23 Time out performed: Yes sedative: Etomidate Mg Given: 20 paralytic: Rocuronium Mg Given: 100 Laryngoscope: fiber optic video scope Tube Size (cm): 7.5 Method of Intubation: orotracheal Number of Attempts: 1 Tube Secured Depth (cm): 25 Tube Secured Location: lips Tube Placement Confirmation: visualized tube passing through cords, equal breath sounds bilaterally, no breath sounds over epigastrium and confirmation by capnometry Patient Tolerated Procedure: well Intubation Complications: none MDM - Cardiac Arrest/CPR MDM Narrative Medical decision making narrative: The patient was evaluated by myself in the emergency department. History is obtained from EMS. External medical records were reviewed at this time. IV was established and pertinent tests were ordered. CPR was resumed and patient was administered 1 round of epinephrine with return of spontaneous circulation. Bedside cardiac ultrasound revea
[2024-06-03 23:25] LABS: Glucose Point of Care 278 mg/dl (65-105)
[2024-06-03 23:30] LABS: Basophils Absolute Auto 0.1 K/mm3 (0.0-0.1); Basophils Percent Auto 0.4 % (0.2-1.2); Eosinophils Absolute Auto 0.5 K/mm3 (0-0.3); Eosinophils Percent Auto 2.4 % (0-4.4); Hematocrit 42.8 % (42.0-52.0); Hemoglobin 14.9 g/dL (14.0-18.0); Immature Granulocyte Absolute 1.05 K/mm3 (0.00-0.031); Lymphocytes Absolute Auto 3.11 K/mm3 (0.9-3.2); Lymphocytes Percent Auto 14.7 % (18.3-44.2); Mean Corpuscular HGB Conc 34.8 g/dl (32-36); Mean Corpuscular Hemoglobin 33.3 pg (26-34); Mean Corpuscular Volume 95.5 fl (80-100); Mean Platelet Volume 9.4 fl (7.4-10.4); Monocytes Absolute Auto 0.9 K/mm3 (0.1-0.6); Monocytes Percent Auto 4.2 % (2.6-8.5); Neutrophils Absolute Auto 15.6 K/mm3 (1.3-6.7); Neutrophils Percent Auto 73.3 % (45.5-73.1); Platelet Count Result 251 k/mm3 (150-375); Red Blood Count 4.48 M/mm3 (4.6-6.20); Red Cell Distribution Width 12.2 % (11.5-14.5); White Blood Count 21.2 K/mm3 (4.5-10.0)
[2024-06-03 23:38] VITALS: BP 132/93; PULSE 92; RESP 20; TEMP 36.1; O2SAT 97
[2024-06-03 23:41] LABS: Acetaminophen < 10 ug/mL (10-30); Ethanol < 10 mg/dL (<10); Lactic Acid Reflex 3.7 mmol/L (0.7-2.0)
[2024-06-03 23:45] VITALS: BP 137/99; PULSE 105; RESP 15; O2SAT 100
[2024-06-03 23:46] VITALS: PULSE 108; RESP 15; O2SAT 100
[2024-06-03 23:46] LABS: Amphetamine Screen Urine Negative (Negative); Barbiturate Screen Urine Negative (Negative); Benzodiazepines Screen Urine Positive (Negative); Cannabinoid Screen Urine Positive (Negative); Cocaine Screen Urine Positive (Negative); Methadone Screen Urine Negative (Negative); Opiate Screen Urine Positive (Negative); Phencyclidine Screen Urine Negative (Negative)
[2024-06-03 23:46] LABS: Alveolar/Arterial O2 Gradient 545.1 mmHg; Base Excess ABG -5.4 mEq/l (+/-2.0); Fractional Inspired Oxygen 100 %; HCO3 ABG 23.5 mEq/l (22.0-26.0); Oxygen Content ABG 19.2 %vol (16.0-22.0); Oxygen Saturation ABG 96.7 % (95.0-100.0); Oxyhemoglobin 96.1 % THb (90.0-100.0); PO2 ABG 107.2 mmHg (80.0-100.0); PO2 FiO2 Ratio Arterial Blood 1.07 %; Total Hemoglobin 14.1 g/dL (12.0-18.0)
[2024-06-03 23:49] LABS: pH ABG 7.206 (7.350-7.450)
[2024-06-03] MEDS: PIPERACILLIN/TAZ 4.5G/NS 100ML 4.5 GM/100 ML BAG IVPB (23:49)
[2024-06-03 23:50] LABS: Device VENTILATOR; Modified Allen's Test Pass; PCO2 ABG 60.7 mmHg (35.0-45.0); Site Drawn RIGHT RADIAL
[2024-06-03 23:51] LABS: Arterial Blood Gas PEEP 8 cmH2O; Arterial Blood Gas Tidal Volume 400 ml; Arterial Blood Gas Vent Mode CMV; Arterial Blood Gas Ventilator rate 15 /MIN
[2024-06-03] MEDS: SODIUM CHLORIDE 0.9% IV 1,000 ML 999 ML IV CONT (23:57)
[2024-06-04] VITALS (107 sets, daily range): BP systolic 82–251; BP diastolic 47–180; PULSE 63–130; RESP 18–60; TEMP 33–40.2; O2SAT 77–100; BMI 19.3
[2024-06-04 00:04] LABS: Add Urine Microscopic? YES; Alanine Aminotransferase 183 U/L (6-50); Alkaline Phosphatase 71 U/L (38-126); Anion Gap 14 mmol/L (4-12); Appearance Urine Cloudy (Clear); Aspartate Amino Transferase 233 U/L (17-59); Bacteria Urine 1+ /hpf; Bilirubin Urine Negative (Negative); Bilirubin,Total 0.4 mg/dL (0.2-1.3); Blood Urea Nitrogen 11 mg/dL (9-20); Blood Urine 2+ (Negative); Calcium 8.1 mg/dL (8.4-10.2); Carbon Dioxide 26 mmol/L (22-30); Chloride 100 mmol/L (98-107); Color Urine Yellow (Yellow); Estimated Glomerular Filt Rate > 60; Glucose 254 mg/dL (65-110); Glucose Urine UA 3+ mg/dL (Negative); Hyaline Casts Urine Present /lpf; Ketones Urine Negative (Negative); Leukocyte Esterase Ur Negative LEU/UL (Negative); Magnesium 1.8 mg/dL (1.6-2.3); Need Manual Microscopic Reviewed; Nitrate Urine Negative (Negative); Non Pathogenic Casts >20; Potassium 3.4 mmol/L (3.4-5.0); Protein Urine 3+ mg/dL (Negative); RBC Urine 21-50 /hpf (0-2); Sodium 140 mmol/L (137-145); Specific Grav Ur 1.024 (1.001-1.035); Squamous Epithelial Cell Urine Few /hpf (Few); WBC Urine 21-50 /hpf (0-3); pH Urine 5.5 (5.0-9.0)
[2024-06-04] MEDS: MIDAZOLAM HCL (*CRX) 10 MG/2 ML VIAL 5 MG IV PUSH (01:27)
--- NOTE | 2024-06-04 01:42 | PC.NURSE ---
EDP made aware of tachypnea, upper arm purposeful movements, and hypertension. VORB for 5 mg of Versed IVP PRN for sedation.
[2024-06-04 02:26] LABS: Reflex Lactic Acid Yes or No Add Lactic
[2024-06-04] MEDS: MIDAZOLAM 100MG/NS 100ML(*CRX) 100 MG/100 ML BAG IV CONT ×2 (02:40→05:55)
--- NOTE | 2024-06-04 04:00 | ADMGEN ---
This patient, Osvaldo Recinos, was admitted to Intensive Care Unit-8. Patient/family oriented to hospital policies and general routines including ID bracelet, bed and alarms, visiting hours, pain management, procedures, bathroom and other care routines, personal items, smoking policy, room service/diet, and visiting hours. Information on how to activate the Rapid Response Team has been discussed. Patient/Family are encouraged to report perceived risks to care and to ask questions if they do not understand what they are told or what they should do.
--- NOTE | 2024-06-04 04:35 | PC.NURSE ---
Updated Dr. Germain regarding patient condition. Start hypothermia protocol, give 4mg IV push Versed x1 now, Fentanyl drip per protocol and 1L LR Bolus x1 now.
[2024-06-04] MEDS: MIDAZOLAM HCL (*CRX) 2 MG/2 ML VIAL 4 MG IV PUSH ×2 (04:40→05:29)
--- NOTE | 2024-06-04 04:41 | ECHOL_ITS ---
Patient Info Name: Osvaldo Recinos Age: 24 years : 2000 Gender: Male Wt: 134 lbs HR: 110 bpm BP: 100 / 47 mmHg Heart Rhythm: Sinus Rhythm Technical Quality: Poor Exam Date: 06/04/2024 10:26 AM Exam Location: Echo Lab Patient Status: Inpatient Admit Date: 06/04/2024 Staff Ordering Physician: Flip Germain MD [place] [employer]: David Damon RDCS Attending Provider: Adriana Manzo MD Exam Type: CA echo limited Study Info Indications - post arrest Limited two-dimensional transthoracic echocardiogram is performed. Reason for Poor Study: poor echocardiographic windows Summary 1. Unremarkable limited echocardiogram. Left Ventricle Left ventricular chamber dimension is normal. Left ventricular systolic function is normal, estimated at 60-65%. Right Ventricle Right ventricular chamber dimension is normal. Left Atria Left atrial chamber dimension is normal. Right Atria Right atrial chamber dimension is normal. Aortic Valve The aortic valve is normal. Pulmonic Valve The pulmonic valve is normal. Mitral Valve The mitral valve has normal leaflets. Tricuspid Valve The tricuspid valve leaflets are normal. Pericardium/Pleural The pericardium appears normal. Aorta The aortic root size at the sinus of Valsalva is normal. Report Signatures
[2024-06-04] MEDS: PROPOFOL IV EMULSION 100 ML 18.36 MG IV CONT (04:44)
[2024-06-04] MEDS: FENTANYL 2,500MCG/NS250ML(*CRX 2,500 MCG/250 ML BAG IV CONT (04:46)
[2024-06-04] MEDS: LACTATED RINGERS 1,000 ML 999 ML IV CONT (04:52)
[2024-06-04] MEDS: LORazepam INJ (*CRX) 2 MG/ML VIAL 1 MG IV PUSH (05:06)
[2024-06-04 05:10] LABS: Hematocrit 45.7 % (42.0-52.0); Hemoglobin 15.5 g/dL (14.0-18.0); Mean Corpuscular HGB Conc 33.9 g/dl (32-36); Mean Corpuscular Hemoglobin 32.4 pg (26-34); Mean Corpuscular Volume 95.6 fl (80-100); Mean Platelet Volume 9.4 fl (7.4-10.4); Platelet Count Result 244 k/mm3 (150-375); Red Blood Count 4.78 M/mm3 (4.6-6.20); Red Cell Distribution Width 12.3 % (11.5-14.5); White Blood Count 21.8 K/mm3 (4.5-10.0)
[2024-06-04 05:21] LABS: Lactic Acid Reflex 2.7 mmol/L (0.7-2.0)
[2024-06-04 05:21] LABS: INR 1.3; Partial Thromboplastin Time 28.9 Seconds (22.3-36.8); Prothrombin Time 16.7 Seconds (11.1-14.7)
[2024-06-04 05:26] LABS: Anion Gap 11 mmol/L (4-12); Blood Urea Nitrogen 10 mg/dL (9-20); Carbon Dioxide 26 mmol/L (22-30); Chloride 104 mmol/L (98-107); Estimated Glomerular Filt Rate > 60; Glucose 121 mg/dL (65-110); Magnesium 1.7 mg/dL (1.6-2.3); Phosphorus 3.2 mg/dL (2.5-4.5); Potassium 3.9 mmol/L (3.4-5.0); Sodium 141 mmol/L (137-145)
[2024-06-04 05:30] LABS: Creatine Kinase 151 U/L (55-170)
[2024-06-04 05:32] LABS: Triglycerides 70 mg/dL (<150)
[2024-06-04 05:40] LABS: Alveolar/Arterial O2 Gradient 387.2 mmHg; Base Excess ABG -4.2 mEq/l (+/-2.0); Carboxyhemoglobin 0.2 % THb (0-2.0); Fractional Inspired Oxygen 100 %; HCO3 ABG 23.4 mEq/l (22.0-26.0); Methemoglobin ABG 0.2 %THb (0-1.5); Oxygen Content ABG 20.2 %vol (16.0-22.0); Oxygen Saturation ABG 99.5 % (95.0-100.0); PCO2 ABG 52.8 mmHg (35.0-45.0); PO2 ABG 257.1 mmHg (80.0-100.0); PO2 FiO2 Ratio Arterial Blood 2.57 %; Reduced Hemoglobin 0.6 %THb (0-5.0); Total Hemoglobin 14.1 g/dL (12.0-18.0)
[2024-06-04 05:45] LABS: Device VENTILATOR; Modified Allen's Test Pass; Site Drawn LEFT RADIAL; pH ABG 7.264 (7.350-7.450)
[2024-06-04 05:46] LABS: Arterial Blood Gas Vent Mode CMV; Arterial Blood Gas Ventilator rate 18 /MIN
[2024-06-04 05:47] LABS: Arterial Blood Gas PEEP 8 cmH2O; Arterial Blood Gas Tidal Volume 400 ml
[2024-06-04] MEDS: ROCURONIUM BROMIDE 50 MG/5 ML VIAL IV PUSH ×2 (05:55→08:05)
[2024-06-04 06:08] LABS: MRSA (PCR) NOT DETECTED (NOT DETECTE)
--- NOTE | 2024-06-04 07:32 | PM.IMHP ---
H&P: HPI History of Present Illness Date/Time: 06/04/24 07:32 Chief Complaint: Cardiac arrest Narrative: Patient is intubated, history is taken from ER physician 24 years old man with history of drug misuse, brought to ED because of cardiac arrest. Patient was found unresponsive for unknown time, and family called EMS. Upon arrival, patient was unresponsive, breathless, but had pulse. CPR were performed about 20 minutes, patient was intubated. Family report, patient used fentanyl today. Patient was brought to ED for evaluation treatment. Upon arrival, patient had a fever 104.4, tachycardia tachypnea, blood pressure soft. Lab showed leukocytosis 21,200, chemistry showed I evaluated liver enzymes, AST 233, ALT 183, lactic acidosis-3.7, UA shows pyuria and hematuria, pH shows pH 7.206, pCO2 6.7, CT head showed no acute intracranial issues. CT chest showed intensive left upper lobe pneumonia and bilateral lower lobe pneumonia. Drug screening positive of multiple substances including cocaine, marijuana. Patient was admitted to ICU for close monitoring Review of Systems Review of Systems: Patient is intubated, PMFSH Past Medical History Medical History Patient denies medical problems Surgical History Surgical History H/O wrist surgery Family History Family History (Updated 06/04/24 @ 03:42 by Kiara Hinson RN) Other Unknown family medical history Social History Social History Smoking status: Current some day smoker Smokeless tobacco user: other Additional smoking assessment comments: marijuana Alcohol intake: current Drinks per week: 3 Substance use: current Substance use type: marijuana Other substance usage details: alcohol approximately 2 drinks/mo Last use: 06/03/24 Do You Feel Safe in your Home?: No Lack of Transportation: No Lack of Food: Often True Current Housing: I Have Housing Concerned About Future Housing: No Difficulty Paying Gas/Electric Bills: YES Difficulty Paying for Meds: No Currently Unemployed: YES Education: Grade School Difficulty w/ Childcare or Family Care: No Living arrangements: with friend(s) Additional living arrangements comments: GIRLFRIEND Gender identity (if verbalized by the patient): Male Spiritual care concerns: No Meds Home Medications and Allergies Home Medications Medication Instructions Recorded Confirmed Type No Home Medications 06/04/24 06/04/24 History Allergies Allergy/AdvReac Type Severity Reaction Status Date / Time No Known Allergies Allergy Verified 10/23/23 08:55 Vital Signs Vital Signs - 24 hr 06/03/24 23:04 06/03/24 23:04 06/03/24 23:38 Temperature 97.0 F L Pulse Rate 98 92 Respiratory Rate 18 20 Blood Pressure 158/92 H 132/93 H Pulse Oximetry 96 96 97 Oxygen Delivery Mechanical Ventilation Mechanical Ventilation Fraction of Inspired Oxygen 06/03/24 23:00 06/03/24 23:45 06/03/24 23:46 Temperature Pulse Rate 91 105 H 108 H Respiratory Rate 15 15 Blood Pressure 137/99 H Pulse Oximetry 100 100 100 Oxygen Delivery Mechanical Ventilation Fraction of Inspired Oxygen 100 06/04/24 00:00 06/04/24 00:01 06/03/24 23:05 Temperature Pulse Rate 110 H 103 H 136 H Respiratory Rate 18 18 15 Blood Pressure 145/106 H Pulse Oximetry 100 100 Oxygen Delivery Fraction of Inspired Oxygen 06/04/24 01:02 06/04/24 01:07 06/04/24 01:15 Temperature Pulse Rate 91 112 H 113 H Respiratory Rate 29 H 28 H 36 H Blood Pressure Pulse Oximetry Oxygen Delivery Fraction of Inspired Oxygen 06/04/24 01:23 06/04/24 01:29 06/04/24 01:34 Temperature Pulse Rate 112 H 124 H 125 H Respiratory Rate 33 H 36 H 36 H Blood Pressure Pulse Oximetry Oxygen Delivery
[2024-06-04 08:12] LABS: Glucose Point of Care 128 mg/dl (65-105)
[2024-06-04] MEDS: CISATRACURIUM BESYLATE 200 MG in DEXTROSE 5% 80 ML 5.51 ML IV CONT (08:52)
[2024-06-04 08:57] LABS: Acetaminophen < 10 ug/mL (10-30)
[2024-06-04 08:59] LABS: Alveolar/Arterial O2 Gradient 270.1 mmHg; Base Excess ABG 0.3 mEq/l (+/-2.0); Fractional Inspired Oxygen 60 %; HCO3 ABG 26.3 mEq/l (22.0-26.0); Oxygen Content ABG 19.3 %vol (16.0-22.0); Oxygen Saturation ABG 97.6 % (95.0-100.0); Oxyhemoglobin 97.3 % THb (90.0-100.0); PCO2 ABG 47.8 mmHg (35.0-45.0); PO2 ABG 105.1 mmHg (80.0-100.0); PO2 FiO2 Ratio Arterial Blood 1.75 %; pH ABG 7.358 (7.350-7.450)
[2024-06-04 09:04] LABS: Arterial Blood Gas PEEP 8 cmH2O; Arterial Blood Gas Tidal Volume 400 ml; Arterial Blood Gas Vent Mode CMV; Arterial Blood Gas Ventilator rate 24 /MIN; Device VENTILATOR; Site Drawn RIGHT BRACHIAL
[2024-06-04 09:04] LABS: Troponin I 0.418 ng/mL (0.000-0.034)
[2024-06-04] MEDS: CISATRACURIUM BESYLATE 20 MG/10 ML VIAL 10 MG IV PUSH (09:06)
[2024-06-04] MEDS: MIDAZOLAM HCL (*CRX) 2 MG/2 ML VIAL IV PUSH (09:06)
[2024-06-04 09:46] LABS: Glucose Point of Care 110 mg/dl (65-105)
[2024-06-04] MEDS: LACTATED RINGERS 500 ML 999 ML IV CONT (10:05)
[2024-06-04] MEDS: PANTOPRAZOLE SODIUM IV 40 MG VIAL IV PUSH (10:07)
[2024-06-04] MEDS: MINERAL OIL/WHITE PETROLATUM OINTMENT 1 APPLIC EACH EYE ×2 (10:07→20:30)
[2024-06-04] MEDS: ENOXAPARIN 40 MG/0.4 ML SYRINGE SUB-Q (10:08)
[2024-06-04] MEDS: MAGNESIUM SULF 2 GM/WATER 50ML 2 GM/50 ML BAG IVPB (10:09)
[2024-06-04] MEDS: LACTATED RINGERS 1,000 ML 100 ML IV CONT ×2 (10:45→19:00)
[2024-06-04 10:48] LABS: Glucose Point of Care 135 mg/dl (65-105)
[2024-06-04] MEDS: PROPOFOL IV EMULSION 100 ML 16.52 MG IV CONT (11:08)
[2024-06-04] MEDS: PIPERACILLIN/TAZ 4.5G/NS 100ML 4.5 GM/100 ML BAG IVPB ×2 (11:09→17:33)
--- NOTE | 2024-06-04 11:35 | PM.CNCAR ---
Assessment and Plan Assessment and plan (1) Anoxic encephalopathy: Code(s): G93.1 - Anoxic brain damage, not elsewhere classified Status: Acute (2) Cardiac arrest: Code(s): I46.9 - Cardiac arrest, cause unspecified Status: Acute Plan This is a 24-year-old patient with apparent polysubstance abuse and came in with a respiratory followed by cardiac arrest likely due to opiate overdose with fentanyl. There is no evidence in my opinion tooth consider that this was primarily a cardiac event and at this point other than supportive care which is already being delivered there are no other specific cardiac recommendations that need to be made. His prognosis seems to be very poor since there was at least 20 minutes where he was without effective circulation if not longer than that. Hiram Em MD [facility] History of Present Illness History of Present Illness Consult date/time: 06/04/24 11:35 Reason For Visit: Overdose, Cardiac arrest, ROSC Narrative: This is a 24-year-old man I am asked to see at the request of the hospitalist because of a cardiac arrest. The patient is unknown to me he is intubated on ventilator support and on hypothermia protocol at this time and the entire history is obtained from the chart and from speaking to his mother who is in the room. Patient apparently was found unresponsive in his residence yesterday. He lives with his older brother and girlfriend in the girlfriend apparently found him in the bed room unresponsive. 911 was called. They gave instructions over the phone to the brother in terms of performing CPR. Upon arrival apparently he had no pulse and was not breathing. He underwent resuscitation efforts , intubation and according to the medical record about 20 minutes elapsed before effective circulation was restored. His 12 lead electrocardiogram is normal and according to the mother he has no medical problems. He does have a history unfortunately of a drug abuse and was tested positive for opiates, benzodiazepines, cocaine etc.. Apparently this is known to be a fentanyl overdose. In this setting I am seeing him in consultation. There is no history as suggest this would be suspicious of a primary cardiac event. Review of Systems Review of Systems: ROS unobtainable: Yes unobtainable due to endotracheal tube and unobtainable due to medical condition PMFSH Past Medical History Medical History Patient denies medical problems Surgical History Surgical History H/O wrist surgery Family History Family History (Updated 06/04/24 @ 03:42 by Kiara Hinson RN) Other Unknown family medical history Social History Social History Social History: patient's girlfriend claims the patient he abuses Xanax and Percocet and by his improve the street. He also drinks alcohol and smokes marijuana Smoking status: Current some day smoker Smokeless tobacco user: other Additional smoking assessment comments: marijuana Alcohol intake: current Drinks per week: 3 Substance use: current Substance use type: marijuana Other substance usage details: alcohol approximately 2 drinks/mo Last use: 06/03/24 Do You Feel Safe in your Home?: No Lack of Transportation: No Lack of Food: Often True Current Housing: I Have Housing Concerned About Future Housing: No Difficulty Paying Gas/Electric Bills: YES Difficulty Paying for Meds: No Currently Unemployed: YES Education: Grade School Difficulty w/ Childcare or Family Care: No Living arrangements: with friend(s) Additional living arrangements comments: GIRLFRIEND Gender identity (if verbalized by the patient): Male Spiritual care concerns: No Meds Home Medications and Allergies Home Medications Medication Instructions Recorded
--- NOTE | 2024-06-04 11:38 | WPDCNINT ---
Assessment and Plan Assessment and plan (1) Polysubstance abuse: Code(s): F19.10 - Other psychoactive substance abuse, uncomplicated Status: Acute Assessment and Plan: As above mentioned in the history patient has history of Xanax Percocet tobacco marijuana abuse. He recently started using fentanyl as per his mother and this is suspected to be fentanyl overdose. UDS was also positive for cocaine. Is highly alcohol level and acetaminophen level were negative. (2) Anoxic encephalopathy: Code(s): G93.1 - Anoxic brain damage, not elsewhere classified Status: Acute Assessment and Plan: Patient appears to have sustained anoxic brain injury as he was comatose post resuscitation and remained throughout. He was started on targeted temperature management protocol. Which will be continued for next 24 hours (3) Cardiac arrest: Code(s): I46.9 - Cardiac arrest, cause unspecified Status: Acute Assessment and Plan: cardiac arrest secondary to hypoxia and drug overdose. EKG reviewed and echo is pending serial troponins ordered echo is ordered and pending cardiology consulted supportive management as above (4) Drug overdose: Code(s): T50.901A - Poisoning by unspecified drugs, medicaments and biological substances, accidental (unintentional), initial encounter Status: Acute Assessment and Plan: see above (5) Pneumonia: Code(s): J18.9 - Pneumonia, unspecified organism Status: Acute Assessment and Plan: pneumonia which is likely aspiration. Blood cultures sent and are pending continue Zosyn (6) Status epilepticus: Code(s): G40.901 - Epilepsy, unspecified, not intractable, with status epilepticus Status: Acute Assessment and Plan: Patient had a seizure at home as per his girlfriend's history. Night nurse also reported that patient had a seizure despite being on propofol at 50 mcg. Patient was given Versed push and started on Versed infusion. Later patient had to be chemically paralyzed with neuromuscular blockers for his respiratory failure and shivering patient has been started on Keppra consult neurology patient will likely need EEG monitoring and may need transfer to tertiary facility for continuous EEG monitoring. Will discuss with Neurology. (7) Acute respiratory failure: Code(s): J96.00 - Acute respiratory failure, unspecified whether with hypoxia or hypercapnia Status: Acute Assessment and Plan: Acute Respiratory failure secondary to cardiac arrest and aspiration pneumonia patient now intubated Continue full mechanical ventilation support to prevent hypoxemia/hypercarbia and end organ damage. ABG and PCXR reviewed Tidal volume increased to 420 and respiratory rate increased to 25 FiO2 is at 60% Low tidal volume ventilation strategy to prevent volutrauma Management of pneumonia as below Chest CT Extensive left upper lobe pneumonia. Follow-up to radiographic resolution is advised. Extensive dense bilateral lower lobe consolidation is more suggestive of bilateral lower lobe atelectasis, versus additional pneumonia. Probable minimal pneumonic involvement in the right upper lobe. (8) Sepsis: Code(s): A41.9 - Sepsis, unspecified organism Status: Acute Assessment and Plan: sepsis secondary to pneumonia. Patient received 1 L fluid bolus in the ER. Received additional bolus in the ICU. Continue IV fluids. Continue Zosyn. Cultures have been sent and are pending. Monitor lactic acid level Plan DVT prophylaxis - Lovenox Stress ulcer prophylaxis - Protonix Nutrition - npo Code Status - Full Code Spoke to patient's mother and girlfriend at bedside and answered their questions. Updated them with patient's current status and current treatment plan. Case also discussed with Internal Medicine, Neurology and Cardiology. Total Critical Care Time - 60 minutes
[2024-06-04] MEDS: levETIRAcetam 1000MG/NACL100ML 1,000 MG/100 ML BAG 400 MG IVPB ×2 (11:44→20:15)
[2024-06-04 11:50] LABS: Glucose Point of Care 143 mg/dl (65-105)
[2024-06-04] MEDS: VANCOMYCIN 1,500 MG/NS 500 ML 1,500 MG/500 ML BAG 250 MG IVPB (12:22)
[2024-06-04 12:43] LABS: Lactic Acid Reflex 1.3 mmol/L (0.7-2.0)
[2024-06-04 13:16] LABS: Glucose Point of Care 152 mg/dl (65-105)
--- NOTE | 2024-06-04 13:26 | WPDNEURCNPN ---
Assessment and Plan Assessment and plan (1) Polysubstance abuse: Code(s): F19.10 - Other psychoactive substance abuse, uncomplicated Status: Acute (2) Anoxic encephalopathy: Code(s): G93.1 - Anoxic brain damage, not elsewhere classified Status: Acute (3) Cardiac arrest: Code(s): I46.9 - Cardiac arrest, cause unspecified Status: Acute (4) Drug overdose: Code(s): T50.901A - Poisoning by unspecified drugs, medicaments and biological substances, accidental (unintentional), initial encounter Status: Acute Plan status post cardiopulmonary arrest with comatose status will need continual care as such along with the EEG to make further decisions. Consult date: 06/04/24 HPI: Osvaldo Recinos is a 24 year old male Admitted to the hospital through the emergency room subsequent to the cardiac arrest. EMS were called for an unresponsive patient by the family for unclear duration of down time ,on the arrival he was unresponsive, with no pulse and no spontaneous breathing. He received 3 rounds of Narcan and CPR was initiated ,subsequently reports the ventilatory support. By the time he came to the ER, CPR had been in progress for 20minutes ,epinephrine was administered . Patient reportedly currently alcohol intake of with 3 drinks per week ,currently using substance, initial exam revealed him to be unresponsive with CPR in progress ,dilated pupils, oropharynx filled with the bloody secretions and vomitus ,coarse breathing sounds ,no obvious swelling of the joints ,no rash or petechiae on skin, exam pulse 91 pulse ox 100 initial lab in the hospital documented WBC 21.2 hemoglobin 14 ,blood sugar 254 UA positive for benzodiazepine ,cocaine ,cannabinoids and alcohol level less than 10. Patient treated for the cardiac arrest with drug overdose, poly substance abuse and pneumonia, repeat CBC with leukocytosis hemoglobin 15 INR 1.3 UA abnormal, negative for MRSA ,chest x-ray with extensive airspace opacities throughout the left hemithorax and in the right perihilar region CT of the head negative for the bleed ,CT of the chest with extensive left upper lobe pneumonia and bilateral lower lobe consolidation NG tube in the stomach ,cardiology consultation with anoxic encephalopathy and cardiac arrest but no further intervention, supportive care is being carried out Review of Systems Review of Systems: All systems reviewed & are unremarkable except as noted in HPI and below PMFSH Past Medical History Medical History (Updated 06/04/24 @ 11:59 by Flip Germain MD) Patient denies medical problems Polysubstance abuse Surgical History Surgical History H/O wrist surgery Family History Family History (Updated 06/04/24 @ 03:42 by Kiara Hinson RN) Other Unknown family medical history Social History Social History (Updated 06/04/24 @ 11:39 by Flip Germain MD) Social History: patient's girlfriend claims the patient he abuses Xanax and Percocet and by his improve the street. He also drinks alcohol and smokes marijuana Smoking status: Current some day smoker Smokeless tobacco user: other Additional smoking assessment comments: marijuana Alcohol intake: current Drinks per week: 3 Substance use: current Substance use type: marijuana Other substance usage details: alcohol approximately 2 drinks/mo Last use: 06/03/24 Do You Feel Safe in your Home?: No Lack of Transportation: No Lack of Food: Often True Current Housing: I Have Housing Concerned About Future Housing: No Difficulty Paying Gas/Electric Bills: YES Difficulty Paying for Meds: No Currently Unemployed: YES Education: Grade School Difficulty w/ Childcare or Family Care: No Living arrangements: with friend(s) Additional living arrangements comments: GIRLFRIEND Gender identity (if verbalized by the patient): Male Spiritual care concerns:
[2024-06-04] MEDS: CENTRAL LINE FLUSH 10 ML IV PUSH ×2 (13:57→20:30)
[2024-06-04 14:14] LABS: Troponin I 0.149 ng/mL (0.000-0.034)
[2024-06-04 14:15] LABS: Glucose Point of Care 140 mg/dl (65-105)
[2024-06-04] MEDS: NOREPINEPHRINE 8 MG/D5W 250 ML 8 MG/250 ML BAG 9.38 MG IV CONT (14:55)
[2024-06-04 15:24] LABS: Glucose Point of Care 137 mg/dl (65-105)
[2024-06-04 15:55] LABS: Hematocrit 40.6 % (42.0-52.0); Hemoglobin 14.3 g/dL (14.0-18.0); Mean Corpuscular HGB Conc 35.2 g/dl (32-36); Mean Corpuscular Hemoglobin 32.7 pg (26-34); Mean Corpuscular Volume 92.9 fl (80-100); Mean Platelet Volume 9.5 fl (7.4-10.4); Platelet Count Result 224 k/mm3 (150-375); Red Blood Count 4.37 M/mm3 (4.6-6.20); Red Cell Distribution Width 12.5 % (11.5-14.5)
--- NOTE | 2024-06-04 16:00 | ECG_ITS ---
Test Date: 2024-06-04 16:04:31 Measurements Intervals [place] Rate: 80 P: 73 VA: 155 QRS: 37 QRSD: 97 T: 30 QT: 399 QTc: 461 Interpretive Statements SINUS RHYTHM LOW QRS VOLTAGE IN PRECORDIAL LEADS [QRS DEFLECTION < 1.0 mV IN CHEST LEADS] BORDERLINE ECG Compared to ECG 06/03/2024 23:17:18 Low QRS voltage now present Electronically Signed On 06-05-2024 13:12:03 CDT by Hiram Em M.D.
[2024-06-04 16:05] LABS: Anion Gap 8 mmol/L (4-12); Blood Urea Nitrogen 7 mg/dL (9-20); Calcium 8.7 mg/dL (8.4-10.2); Carbon Dioxide 24 mmol/L (22-30); Chloride 109 mmol/L (98-107); Estimated CRCL calculation 164 ml/min; Estimated Glomerular Filt Rate > 60; Glucose 155 mg/dL (65-110); Magnesium 2.4 mg/dL (1.6-2.3); Phosphorus 1.1 mg/dL (2.5-4.5); Potassium 4.4 mmol/L (3.4-5.0); Sodium 141 mmol/L (137-145)
[2024-06-04 16:06] LABS: INR 1.5; Prothrombin Time 18.3 Seconds (11.1-14.7)
[2024-06-04 16:07] LABS: Partial Thromboplastin Time 40.4 Seconds (22.3-36.8)
[2024-06-04 16:22] LABS: Glucose Point of Care 151 mg/dl (65-105)
[2024-06-04] MEDS: PROPOFOL IV EMULSION 100 ML 14.69 MG IV CONT (17:33)
[2024-06-04 18:00] LABS: Glucose Point of Care 123 mg/dl (65-105)
[2024-06-04] MEDS: CISATRACURIUM BESYLATE 200 MG in DEXTROSE 5% 80 ML 6.43 ML IV CONT (21:29)
[2024-06-05] VITALS (44 sets, daily range): BP systolic 112–149; BP diastolic 77–101; PULSE 58–132; RESP 14–100; TEMP 31.8–38.7; O2SAT 97–100
--- NOTE | 2024-06-05 | ECG_ITS ---
Test Date: 2024-06-05 08:20:24 Measurements Intervals [place] Rate: 63 P: 52 AK: 152 QRS: 33 QRSD: 113 T: 24 QT: 488 QTc: 500 Interpretive Statements SINUS RHYTHM PROLONGED QT ABNORMAL ECG Compared to ECG 06/04/2024 16:04:31 Prolonged QT interval now present Electronically Signed On 06-05-2024 13:23:08 CDT by Hiram Em M.D.
[2024-06-05] MEDS: PIPERACILLIN/TAZ 4.5G/NS 100ML 4.5 GM/100 ML BAG IVPB ×3 (00:20→12:59)
[2024-06-05 00:38] LABS: Troponin I 0.059 ng/mL (0.000-0.034)
[2024-06-05 01:25] LABS: Glucose Point of Care 164 mg/dl (65-105)
[2024-06-05 01:26] LABS: Glucose Point of Care 138 mg/dl (65-105)
[2024-06-05 01:26] LABS: Glucose Point of Care 130 mg/dl (65-105)
[2024-06-05 01:26] LABS: Glucose Point of Care 130 mg/dl (65-105)
[2024-06-05 01:26] LABS: Glucose Point of Care 121 mg/dl (65-105)
[2024-06-05 01:27] LABS: Glucose Point of Care 122 mg/dl (65-105)
[2024-06-05] MEDS: PROPOFOL IV EMULSION 100 ML 14.69 MG IV CONT ×2 (01:37→09:31)
[2024-06-05] MEDS: MIDAZOLAM 100MG/NS 100ML(*CRX) 100 MG/100 ML BAG IV CONT (01:38)
[2024-06-05 04:46] LABS: Hematocrit 36.8 % (42.0-52.0); Hemoglobin 13.3 g/dL (14.0-18.0); Mean Corpuscular HGB Conc 36.1 g/dl (32-36); Mean Corpuscular Volume 91.3 fl (80-100); Mean Platelet Volume 9.7 fl (7.4-10.4); Platelet Count Result 182 k/mm3 (150-375); Red Blood Count 4.03 M/mm3 (4.6-6.20); Red Cell Distribution Width 12.5 % (11.5-14.5); White Blood Count 18.7 K/mm3 (4.5-10.0)
[2024-06-05 05:01] LABS: Alanine Aminotransferase 92 U/L (6-50); Albumin Level 3.3 g/dL (3.5-5.1); Alkaline Phosphatase 49 U/L (38-126); Anion Gap 9 mmol/L (4-12); Aspartate Amino Transferase 50 U/L (17-59); Bilirubin,Total 0.7 mg/dL (0.2-1.3); Blood Urea Nitrogen 8 mg/dL (9-20); Carbon Dioxide 20 mmol/L (22-30); Chloride 109 mmol/L (98-107); Creatine Kinase 306 U/L (55-170); Estimated CRCL calculation 200 ml/min; Estimated Glomerular Filt Rate > 60; Glucose 121 mg/dL (65-110); INR 1.5; Magnesium 2.1 mg/dL (1.6-2.3); Phosphorus 1.2 mg/dL (2.5-4.5); Potassium 3.5 mmol/L (3.4-5.0); Prothrombin Time 18.6 Seconds (11.1-14.7); Sodium 138 mmol/L (137-145)
[2024-06-05 05:02] LABS: Lactic Acid Reflex 1.5 mmol/L (0.7-2.0); Partial Thromboplastin Time 39.2 Seconds (22.3-36.8)
[2024-06-05] MEDS: LACTATED RINGERS 1,000 ML 100 ML IV CONT ×2 (05:44→17:53)
[2024-06-05 05:46] LABS: Alveolar/Arterial O2 Gradient 83.9 mmHg; Carboxyhemoglobin 0.6 % THb (0-2.0); Fractional Inspired Oxygen 30 %; HCO3 ABG 20.3 mEq/l (22.0-26.0); Methemoglobin ABG 0.3 %THb (0-1.5); Oxygen Content ABG 18.7 %vol (16.0-22.0); Oxygen Saturation ABG 98.2 % (95.0-100.0); Oxyhemoglobin 97.2 % THb (90.0-100.0); PCO2 ABG 25.6 mmHg (35.0-45.0); PO2 ABG 99.9 mmHg (80.0-100.0); PO2 FiO2 Ratio Arterial Blood 3.33 %; Reduced Hemoglobin 1.9 %THb (0-5.0); Total Hemoglobin 13.6 g/dL (12.0-18.0)
[2024-06-05 05:48] LABS: Device VENTILATOR; Modified Allen's Test Unable to perform; Site Drawn RIGHT RADIAL; pH ABG 7.518 (7.350-7.450)
[2024-06-05 05:49] LABS: Arterial Blood Gas PEEP 8 cmH2O; Arterial Blood Gas Tidal Volume 420 ml; Arterial Blood Gas Vent Mode CMV; Arterial Blood Gas Ventilator rate 25 /MIN
[2024-06-05] MEDS: CISATRACURIUM BESYLATE 200 MG in DEXTROSE 5% 80 ML 6.43 ML IV CONT (05:51)
[2024-06-05] MEDS: CENTRAL LINE FLUSH 10 ML IV PUSH ×2 (05:53→14:54)
[2024-06-05 05:58] LABS: Glucose Point of Care 119 mg/dl (65-105)
[2024-06-05 05:58] LABS: Glucose Point of Care 108 mg/dl (65-105)
[2024-06-05 05:58] LABS: Glucose Point of Care 121 mg/dl (65-105)
[2024-06-05 05:58] LABS: Glucose Point of Care 108 mg/dl (65-105)
[2024-06-05] MEDS: levETIRAcetam 1000MG/NACL100ML 1,000 MG/100 ML BAG 400 MG IVPB (08:06)
[2024-06-05] MEDS: PANTOPRAZOLE SODIUM IV 40 MG VIAL IV PUSH (08:06)
[2024-06-05] MEDS: MINERAL OIL/WHITE PETROLATUM OINTMENT 1 APPLIC EACH EYE (08:06)
--- NOTE | 2024-06-05 08:17 | PM.IMPN ---
Progress Note: A&P Assessment and Plan (1) Cardiac arrest: Code(s): I46.9 - Cardiac arrest, cause unspecified Status: Acute (2) Drug overdose: Code(s): T50.901A - Poisoning by unspecified drugs, medicaments and biological substances, accidental (unintentional), initial encounter Status: Acute (3) Polysubstance abuse: Code(s): F19.10 - Other psychoactive substance abuse, uncomplicated Status: Acute (4) Pneumonia: Code(s): J18.9 - Pneumonia, unspecified organism Status: Acute (5) Anoxic encephalopathy: Code(s): G93.1 - Anoxic brain damage, not elsewhere classified Status: Acute (6) Septic shock: Code(s): A41.9 - Sepsis, unspecified organism; R65.21 - Severe sepsis with septic shock Status: Acute (7) Shock liver: Code(s): K72.00 - Acute and subacute hepatic failure without coma Status: Acute (8) Complicated UTI (urinary tract infection): Code(s): N39.0 - Urinary tract infection, site not specified Status: Acute Plan Anoxic encephalopathy Patient was unresponsive, CPR performed blood 20 minutes Suspecting acute encephalopathy possible toxic encephalopathy due over anoxic encephalopathy Neuro check CT head shows no acute intracranial issues Patient is on hypothermic therapy, will stop Hypothermic therapy afternoon Bilateral pupil unresponsive to light stimuli Management per orthopedic surgeon May consult neurologist for evaluation and management Cardiac arrest Possible due to drug overdose Follow echocardiogram Severe troponin Telemetry monitoring Consult export manager Acute respiratory failure with hypoxemia and hypercapnia, multifocal pneumonia ABG showed decompensated respiratory acidosis, metabolic acidosis and hypoxemia Likely resulting from multiple pneumonia and polysubstance abuse Patient is intubated Mechanical ventilation management per orthopedic surgeon Suspecting aspiration pneumonia Start Zosyn IV, continue Zosyn IV Continue O2 therapy to keep pulse ox above 94 Left pneumothorax Possible due to CPR Chest tube is placed Septic shock Patient blood pressure low, tachycardia tachypnea leukocytosis upon arrival, lactic acidosis Suspecting septic shock due to multiple pneumonia and UTI Received fluid resuscitation in the ED Continue fluid resuscitation per septic protocol Follow-up CBC, BMP, blood culture urine culture Shock liver Elevated liver enzymes Suspecting secondary to septic shock and cardiac arrest Follow-up CMP Avoid hepatic toxic medications Glucose 254 upon arrival Possible undiagnosed diabetes Follow-up A1c Start insulin sliding scale q.4 hours Patient condition is critical, prognosis is poor. Continue to Monitor patient closely in ICU Consult export manager for evaluation treatment Subjective Date/time seen: 06/05/24 08:17 Interval history: I saw examined patient in ICU. Patient was found have pneumothorax over the night, CT showed extensive pneumomediastinum as well as pneumoperitoneum, small left pneumothorax, multifocal consolidation left upper and lower lobe, right lower lobe most compatible with multilobar pneumonia. Patient is still on mechanical ventilation and hypothermia therapy. Exam Narrative: GENERAL: Ill-appearing in no acute distress. Well-nourished. - EYES: Anicteric. Pupil dilated, unresponsive to light - HENT: Moist mucous membranes. - LUNGS: Diminished breath sound of left chest, - CARDIOVASCULAR: Regular rate and rhythm. No murmur. No JVD. - ABDOMEN: Soft, non-tender and non-distended. No palpable masses. - EXTREMITIES: No edema. Peripheral pulses 2+. Non-tender. - NEUROLOGIC: Patient is unresponsive unable to evaluate - PSYCHIATRIC: Unresponsive and not oriented x 3.. - LYMPH: No cervical lymphadenopathy. Objective Data Vital Signs Vital Signs: Vital Signs - 24 hr 06/04/24 08:52 06/04/24 08:52 06/04/24 09:24 [facility]
[2024-06-05 08:22] LABS: Glucose Point of Care 100 mg/dl (65-105)
--- NOTE | 2024-06-05 09:31 | P.OP_ITS ---
Procedure Note - Detailed Date of Procedure 06/05/24 Pre-op Diagnosis Left pneumothorax Post-op Diagnosis Same Procedure Performed Placement left chest tube Surgeon Trung Carrizales MD Anesthesia General (Intubated and under full sedation, paralyzed) Indications Night before last, 06/03/2024, patient was found comatose at home. Emergency services provided CPR EN route to the hospital. In the emergency room, patient did restore a stable cardiac rhythm and function. He had done undetermined length of time of cardiac standstill. He was transferred to the intensive care unit. He has evidence of anoxic encephalopathy and is intubated, sedated, and paralyzed. This morning it was noted that he had substantial crepitus of the chest. Imaging of the neck chest and abdomen showed extensive subcu emphysema as well as pneumomediastinum, left apical pneumothorax, and pneumoperitoneum. Patient is hemodynamically stable. He was seen emergently this morning. Chest tube is being placed now for the left pneumothorax. Findings None significant, chest tube able to be placed in the left pleural space Description of Procedure Patient was in his ICU bed, intubated sedated and paralyzed test. The left anterior upper chest was then prepped and draped. Using completely sterile technique, a small incision was made in the upper left breast in the midclavicular line. A needle was able to be advanced over the underlying rib and air was able to be aspirated from the chest. Blunt dissection was used to create somewhat of the tunnel over the underlying rib and into the left chest. A 28 Romanian chest tube with trocar was then advanced through the skin incision and into the upper left chest. The chest tube was hooked to Pleur-evac suction. Chest tube was sutured to the skin with 2-0 silk. An occlusive dressing was then applied. Postprocedure chest x-ray away was reviewed by me and chest tube appears to be in adequate position but there does appear to be a small residual apical pneumothorax. There is still significant amount of subcutaneous emphysema. Implants Left chest tube Estimated Blood Loss -2 Drains No Packing No Pathology None sent Complications None Condition Critical (Condition unchanged) Disposition No change [facility] Billing Surgery - Charge Forward: Surgery Billing (Placement left chest tube)
[2024-06-05] MEDS: ENOXAPARIN 40 MG/0.4 ML SYRINGE SUB-Q (09:32)
--- NOTE | 2024-06-05 09:32 | WPDINTPN ---
Progress Note: A&P Assessment and Plan (1) Acute respiratory failure: Code(s): J96.00 - Acute respiratory failure, unspecified whether with hypoxia or hypercapnia Status: Acute Assessment and Plan: Acute Respiratory failure secondary to cardiac arrest and aspiration pneumonia 06/04: Intubated in the ER Continue full mechanical ventilation support to prevent hypoxemia/hypercarbia and end organ damage. ABG and PCXR reviewed -continue Low tidal volume ventilation strategy to prevent volutrauma -patient being treated with Zosyn for possible aspiration pneumonia 06/05: Early hours bedside RN felt crepitus on the chest neck and abdomen, CT scan of the chest and soft tissues were done as under. -in light of pneumothorax, peep was decreased to 5, also decrease tidal volumes. Will recheck ABGs this afternoon. Surgery placed left-sided chest tube 06/05: CT soft tissue neck and chest Markedly extensive soft tissue/subcutaneous emphysema and the neck and chest wall/upper back. Extensive pneumomediastinum, as well as pneumoperitoneum, new from prior exam. Small left pneumothorax, new from prior exam. Multifocal consolidation in the left upper lobe, left lower lobe, right lower lobe, most compatible with multilobar pneumonia. Possible element of bibasilar atelectasis also present. 06/04: Chest CT Extensive left upper lobe pneumonia. Follow-up to radiographic resolution is advised. Extensive dense bilateral lower lobe consolidation is more suggestive of bilateral lower lobe atelectasis, versus additional pneumonia. Probable minimal pneumonic involvement in the right upper lobe. (2) Pneumothorax, left: Code(s): J93.9 - Pneumothorax, unspecified Status: Acute Assessment and Plan: 06/05: Chest x-ray and chest CT showed left-sided pneumothorax which could be related to CPR, positive-pressure ventilation -surgery consulted and placed a left-sided chest tube. Post chest tube placement chest x-ray shows tube in appropriate (3) Pneumomediastinum: Code(s): J98.2 - Interstitial emphysema Status: Acute Assessment and Plan: 06/05: CT chest also showed revealed a pneumomediastinum, could be related to esophageal or tracheal perforation, CT chest does not show any tracheal perforation. Will obtain Gastrografin esophagram and upper GI series -surgery following (4) Pneumoperitoneum of unknown etiology: Code(s): K66.8 - Other specified disorders of peritoneum Status: Acute Assessment and Plan: 06/05: Pneumoperitoneum on CT chest -surgery was consulted -CT abdomen and pelvis has been ordered (5) Cardiac arrest: Code(s): I46.9 - Cardiac arrest, cause unspecified Status: Acute Assessment and Plan: 06/04: cardiac arrest secondary to hypoxia and drug overdose. Prolonged cardiac arrest of at least 30 minutes on greater after the arrival of EMS, unknown amount of down time prior to that. A BLS team had arrived on site of cardiac arrest, patient was given Narcan and CPR along with Igel tube insertion, no IV line was obtained nor epinephrine was given until the patient arrived in the ER where an IV line was obtained and patient given 1 round of epinephrine before ROSC was obtained -troponins were 0.418, 0.149, 0.059 -06/05: EKG showed prolonged QTC, sinus rhythm, no ST elevations -appreciate cardiology evaluation and recommendation. Supportive care for now -patient was started on target temperature management, will start rewarming at 1:00 p.m. today on 06/05 06/04: Echocardiogram LV chamber dimension is normal, LV systolic function normal, estimated EF 60-65%, RV normal, no valvular issues, pericardium is normal (6) Polysubstance abuse: Code(s): F19.10 - Other psychoactive substance abuse, uncomplicated Status: Acute Assessment and Plan: -patient with polysubstance abuse, history of Xanax Percocet, tobacco, marijuana abuse. He recently started using
--- NOTE | 2024-06-05 09:38 | PM.CNGS ---
Assessment and Plan Assessment and plan (1) Pneumothorax, left: Code(s): J93.9 - Pneumothorax, unspecified Status: Acute Assessment and Plan: Patient on mechanical ventilator, left chest tube placed in the ICU. Chest x-ray shows the tube to be in good position. (2) Pneumomediastinum: Code(s): J98.2 - Interstitial emphysema Status: Acute Assessment and Plan: Will get a esophagram and upper GI (3) Pneumoperitoneum of unknown etiology: Code(s): K66.8 - Other specified disorders of peritoneum Status: Acute Assessment and Plan: Will get CT scan abdomen and pelvis with contrast in addition to upper GI (4) Polysubstance abuse: Code(s): F19.10 - Other psychoactive substance abuse, uncomplicated Status: Acute Assessment and Plan: Numerous substances positive on drug testing (5) Cardiac arrest: Code(s): I46.9 - Cardiac arrest, cause unspecified Status: Acute Assessment and Plan: Unknown time of actual arrest but underwent over 20 minutes CPR before cardiac function restored (6) Drug overdose: Qualifiers: Encounter type: subsequent encounter Injury intent: undetermined intent Qualified Code(s): T50.904D - Poisoning by unspecified drugs, medicaments and biological substances, undetermined, subsequent encounter Code(s): T50.901A - Poisoning by unspecified drugs, medicaments and biological substances, accidental (unintentional), initial encounter Status: Acute Assessment and Plan: Suspected to be fentanyl overdose (7) Anoxic encephalopathy: Code(s): G93.1 - Anoxic brain damage, not elsewhere classified Status: Acute Assessment and Plan: Patient will have sedation reduced later today and neurologic status further evaluated. History of Present Illness Consult details Consult date: 06/05/24 Reason for consult: other (Traumatic CPR with left pneumothorax, pneumomediastinum, pneumoperitoneum) Requesting physician: Hector Preciado MD Narrative: I was asked to urgently see this patient in the intensive care unit this morning. He is a 24-year-old man who has a history of polysubstance abuse. He was found unconscious at home by family. He could not be aroused. Paramedics and emergency services arrived in promptly started CPR. He was taken to the emergency room where IV access was established and after continued CPR as well as epinephrine, he re established a stable cardiac rhythm and pulse. He was intubated and taken to the intensive care unit. He has some evidence of anoxic in septal with the and is being treated with hypothermia. He has currently intubated, sedated, and paralyzed. He is also on antibiotics for possible aspiration pneumonia. This morning he he was noted to have extensive subcutaneous emphysema of the neck and chest. CT scans of the neck and chest were performed. This showed pneumomediastinum, left apical pneumothorax, and pneumoperitoneum. I saw the patient for urgent evaluation. No history other than conversations with Dr. Preciado and review of the chart are available. Review of Systems Review of Systems: ROS unobtainable: Yes unobtainable due to medical condition PMFSH Past Medical History Medical History Patient denies medical problems Polysubstance abuse Surgical History Surgical History H/O wrist surgery Family History Family History Other Unknown family medical history Social History Social History Social History: patient's girlfriend claims the patient he abuses Xanax and Percocet and by his improve the street. He also drinks alcohol and smokes marijuana Smoking status: Current some day smoker Smokeless tobacco user: other Additional smok
--- NOTE | 2024-06-05 10:59 | PCFNICU ---
ICU Rounding Note: Pt current nutrition is NPO. Nutrition recommendation: Vital AF 1.2 at 55 ml/hr-goal rate. Last recorded weight is 61.2 kg, stable. Bowel Motility: No reported at this time. Bowel sounds-present. Labs Reviewed: Glu 121, BUN 8, Cr 0.4,Alb 3.3 Meds Noted:Zosyn, LR, Keppra, Propofol 40 kcqd=930 kcals, Versed, Protonix. Skin: WNL Additional Notes:Patient remains on mechanical vent. Hypothermia guidelines in place. Surgery consult for left chest tube placement today. Tube feeding recommendations: Vital AF 1.2 goal rate at 55 ml/hr at this time due to 40 mcgs of Propofol providing an additional 388 kcals. Flush 30 ml q 4 hours. Following daily in ICU rounds. Will monitor weight, labs, skin, meds, diet orders Sunday and Sunday.
[2024-06-05 12:06] LABS: Alveolar/Arterial O2 Gradient 161.5 mmHg; Base Excess ABG -2.9 mEq/l (+/-2.0); Fractional Inspired Oxygen 50 %; HCO3 ABG 22.7 mEq/l (22.0-26.0); Oxygen Content ABG 19.4 %vol (16.0-22.0); Oxyhemoglobin 98.7 % THb (90.0-100.0); PCO2 ABG 42.4 mmHg (35.0-45.0); PO2 ABG 163.2 mmHg (80.0-100.0); PO2 FiO2 Ratio Arterial Blood 3.26 %; Total Hemoglobin 13.8 g/dL (12.0-18.0); pH ABG 7.346 (7.350-7.450)
[2024-06-05 12:08] LABS: Device VENTILATOR; Modified Allen's Test Pass; Site Drawn RIGHT RADIAL
[2024-06-05 12:09] LABS: Arterial Blood Gas Vent Mode CMV; Arterial Blood Gas Ventilator rate 20 /MIN
[2024-06-05 12:10] LABS: Arterial Blood Gas PEEP 5 cmH2O; Arterial Blood Gas Tidal Volume 350 ml
[2024-06-05 12:12] LABS: Glucose Point of Care 80 mg/dl (65-105)
[2024-06-05] MEDS: fentaNYL CITRATE INJ (*CRX) 100 MCG/2 ML VIAL IV PUSH (15:00)
[2024-06-05] MEDS: PROPOFOL IV EMULSION 100 ML 18.36 MG IV CONT (16:06)
[2024-06-05 16:51] LABS: Hematocrit 33.7 % (42.0-52.0); Mean Corpuscular HGB Conc 35.6 g/dl (32-36); Mean Corpuscular Hemoglobin 32.6 pg (26-34); Mean Corpuscular Volume 91.6 fl (80-100); Mean Platelet Volume 9.4 fl (7.4-10.4); Platelet Count Result 167 k/mm3 (150-375); Red Blood Count 3.68 M/mm3 (4.6-6.20); Red Cell Distribution Width 12.9 % (11.5-14.5); White Blood Count 16.5 K/mm3 (4.5-10.0)
[2024-06-05 16:58] LABS: Glucose Point of Care 83 mg/dl (65-105)
[2024-06-05 17:01] LABS: Anion Gap 6 mmol/L (4-12); Blood Urea Nitrogen 6 mg/dL (9-20); Calcium 8.5 mg/dL (8.4-10.2); Carbon Dioxide 26 mmol/L (22-30); Chloride 107 mmol/L (98-107); Estimated CRCL calculation 140 ml/min; Estimated Glomerular Filt Rate > 60; Glucose 94 mg/dL (65-110); Magnesium 1.7 mg/dL (1.6-2.3); Phosphorus 2.9 mg/dL (2.5-4.5); Potassium 3.4 mmol/L (3.4-5.0); Sodium 139 mmol/L (137-145)
[2024-06-05 17:52] LABS: INR 1.3; Prothrombin Time 16.7 Seconds (11.1-14.7)
[2024-06-05] MEDS: MIDAZOLAM 100MG/NS 100ML(*CRX) 100 MG/100 ML BAG 9 MG IV CONT (17:52)
[2024-06-05 17:53] LABS: Partial Thromboplastin Time 41.5 Seconds (22.3-36.8)
[2024-06-05] MEDS: POTASSIUM CHLORIDE 20 MEQ PACKET (FOR LIQUID) 40 MEQ FEED TUBE (17:54)
[2024-06-05] MEDS: MAGNESIUM SULF 2 GM/WATER 50ML 2 GM/50 ML BAG IVPB (17:54)
[2024-06-05] MEDS: LORazepam INJ (*CRX) 2 MG/ML VIAL IV PUSH (17:55)
[2024-06-05] MEDS: fentaNYL CITRATE INJ (*CRX) 100 MCG/2 ML VIAL 200 MCG IV PUSH (18:15)
--- NOTE | 2024-06-05 18:15 | PC.NURSE ---
Report given to BRIDGET Post at [facility].
== END 2024-06-05 18:22 | disposition short-term general hospital (02) | DRG 720 ==
LOC: ANHED 23:00 → ANHICU 06-04 03:16
PROVIDERS: Internal Medicine; Admitting Provider Internal Medicine; Emergency Provider Emergency Medicine; Visit Provider Hospitalist
DX: A41.9 Sepsis, unspecified organism (principal); I46.9 Cardiac arrest, cause unspecified; J18.9 Pneumonia, unspecified organism; T40.2X1A Poisoning by other opioids, accidental (unintentional), initial encounter; T40.411A Poisoning by fentanyl or fentanyl analogs, accidental (unintentional), initial encounter; J96.00 Acute respiratory failure, unspecified whether with hypoxia or hypercapnia; J93.9 Pneumothorax, unspecified; J98.2 Interstitial emphysema; J96.02 Acute respiratory failure with hypercapnia; J96.01 Acute respiratory failure with hypoxia; F17.210 Nicotine dependence, cigarettes, uncomplicated; F19.10 Other psychoactive substance abuse, uncomplicated; G93.1 Anoxic brain damage, not elsewhere classified; R65.21 Severe sepsis with septic shock; K72.00 Acute and subacute hepatic failure without coma; N39.0 Urinary tract infection, site not specified; G40.901 Epilepsy, unspecified, not intractable, with status epilepticus
CPT/HCPCS: 31500; 36415; 36600; 70450; 70490; 71045; 71250; 74177; 80048; 80053; 80307; 81001; 82375; 82550; 82805; 82948; 83050; 83605; 83735; 84100; 84478; 84484; 85025; 85027; 85610; 85730; 87040; 87086; 87641; 92950; 93005; 93308; 94002; 94003; 96361; 96365; 96374; 96375; 99285; A9270; J1650; J1953; J2060; J2250; J2470; J2543; J2704; J3010; J3370; J3475; J7030; J7120; Q9967